=== PATIENT | male | born 1955 | race Caucasian/White ===

== ENCOUNTER 2017-12-30 05:45 | Emergency (ER) | payer MEDICARE, SELFPAY ==
[~2017-12-30] VITALS: Ht 180.3 cm; Wt 106.6 kg
[~2017-12-30 05:45] MED LIST: BACLOFEN10 MG PO; CARBIDOPA-LEVO1 EAC2 PO; CITALOPRAM HBR20 MG PO; COLACE100 MG PO; DIPHENHYDRAMINE25 M1 PO; MILK OF MA400 MG/5 M PO; MIRALAX17 GM PO; TAMSULOSIN HCL0.4 MG PO; TRAMADOL HCL50 MG PO; VIT D2 1.25 MG (50,0; ZOFRAN ODT4 MG PO
[2017-12-30] MEDS ORDERED: BANOPHEN25 MG PO (05:57)
[2017-12-30] MEDS ORDERED: SERTRALINE HCL50 MG PO (05:58)
[2017-12-30] MEDS ORDERED: ULTRAM50 MG PO (05:59)
[2017-12-30] MEDS ORDERED: OXYBUTYNIN CHLOR5 MG PO (06:01)
[2017-12-30] MEDS ORDERED: KAOPECTATE262 MG/15 PO (06:05)
[2017-12-30] MEDS ORDERED: METHYLPREDNISOLO4 M1 PO (10:07)
[2017-12-30] MEDS ORDERED: NORCO 10-325 T1 EACH PO (10:07)
[2017-12-30] MEDS ORDERED: BACTRIM DS TAB1 EACH PO (10:07)
== END 2017-12-30 11:30 | disposition home or self-care (01) ==
LOC: ED 05:45
DX: K62.89 Other specified diseases of anus and rectum (principal); N39.0 Urinary tract infection, site not specified; F32.9 Major depressive disorder, single episode, unspecified; Z87.891 Personal history of nicotine dependence; Z79.899 Other long term (current) drug therapy
CPT/HCPCS: 74177; 80053; 81001; 82150; 83690; 85025; 87045; 87046; 87088; 87177; 87209; 87493; 87502; 96361; 96374; 96375; 96376; 99284; J1170; J2060; J2270; J2405; J2930; J7030; Q9967

== ENCOUNTER → 2018-02-05 | Emergency (ER) | payer MEDICARE, SELFPAY ==
[~2018-02-05] VITALS: Ht 180.3 cm; Wt 106.6 kg
[~2018-02-05] MED LIST changes: +BACTRIM DS TAB1 EACH PO; +BANOPHEN25 M1 PO; +BANOPHEN25 MG PO; +CITRACAL SOFT1 EACH PO; +KAOPECTATE262 MG/15 PO; +METHYLPREDNISOLO4 M1 PO; +NORCO 10-325 T1 EACH PO; +OXYBUTYNIN CHLOR5 MG PO; +PHENADOZ25 MG PR; +PHENERGAN25 MG PR; +PHOS-NAK PACKE1 EACH PO; +PRILOSEC OTC20 MG PO; +SENNA8.6 MG PO; +SERTRALINE HCL50 MG PO; +TORSEMIDE20 MG PO; +ULTRAM50 MG PO; +VIRT-PHOS 250250 MG PO; +VITAMIN D50000 UNI1 PO; +XANAX XR2 MG PO
== END ==
LOC: ED 17:05
DX: N41.9 Inflammatory disease of prostate, unspecified (principal); E86.0 Dehydration; G20 Parkinson's disease; F32.9 Major depressive disorder, single episode, unspecified; Z87.891 Personal history of nicotine dependence; Z79.899 Other long term (current) drug therapy
CPT/HCPCS: 74177; 80053; 81001; 83605; 83690; 85025; 96374; 96375; 99284; J1885; J2270; J2405; J7030; Q9967

== ENCOUNTER 2018-02-09 04:12 | Emergency (ER) | payer MEDICARE, SELFPAY ==
[~2018-02-09] VITALS: Ht 180.3 cm; Wt 106.6 kg
[~2018-02-09 04:12] MED LIST changes: -BANOPHEN25 M1 PO; -CITRACAL SOFT1 EACH PO; -PHENADOZ25 MG PR; -PHENERGAN25 MG PR; -PHOS-NAK PACKE1 EACH PO; -PRILOSEC OTC20 MG PO; -SENNA8.6 MG PO; -TORSEMIDE20 MG PO; -VIRT-PHOS 250250 MG PO; -VITAMIN D50000 UNI1 PO; -XANAX XR2 MG PO
[2018-02-09] MEDS ORDERED: PHENERGAN25 MG PR (06:31)
--- NOTE | 2018-02-09 13:22 | EKG ---
[facility] [address] [facility] [place] [address] Signed Poor data quality, interpretation may be adversely affected Sinus rhythm with frequent premature ventricular complexes Nonspecific intraventricular block Marked T wave abnormality, consider anterolateral ischemia Abnormal ECG No previous ECGs available Confirmed by DENNIS RIOS MD ([id number]) on 02/09/2018 1:22:32 PM Electronically Signed By: DENNIS RIOS MD 02/09/18 1322 PATIENT NAME: LUCIO QUINN Electrocardiogram DATE OF : 57 PHYSICIAN: DENNIS RIOS MD REPORT #: [id number] REPORT IS CONFIDENTIAL AND NOT TO BE RELEASED WITHOUT AUTHORIZATION
== END 2018-02-09 08:45 | disposition home or self-care (01) ==
LOC: ED 04:12
DX: K59.09 Other constipation (principal); R11.2 Nausea with vomiting, unspecified; F32.9 Major depressive disorder, single episode, unspecified; Z87.891 Personal history of nicotine dependence; Z79.899 Other long term (current) drug therapy
CPT/HCPCS: 74022; 80053; 81001; 83605; 83690; 85025; 93005; 93010; 96374; 96375; 99284; G0480; J2550; J7030

== ENCOUNTER 2018-04-16 21:41 | Observation (INO) | payer MEDICARE, OTHER ==
[~2018-04-16] VITALS: Ht 180.3 cm; Wt 104.7 kg
[~2018-04-16 21:41] MED LIST changes: +PHENERGAN25 MG PR
[2018-04-16] MEDS ORDERED: CITRACAL SOFT1 EACH PO (22:29)
[2018-04-16] MEDS ORDERED: SENNA8.6 MG PO (22:30)
[2018-04-16] MEDS ORDERED: MIRALAX17 GM PO (22:31)
--- NOTE | 2018-04-17 00:20 | NUR ---
RECEIVED PT VIA STRETCHER FROM ER. PHONE REPORT RECEIVED FROM PAULA GOINS. NS 125ML/HR STARTED. PT IS ALERT TO PLACE BUT WAS VERY DROWSY AND DIDN'T ANSWER OTHER QUESTIONS. UNABLE TO USE PAIN SCALE. FACES SCALE IS 1/10. 2PA TO BATHRROM. PT UNSTEADY. HX PARKISONS. LEFT SIDED WEAKNESS. ORINETED TO ROOM. ASSESSMENT COMPLETED. LUNGS CLEAR AND DIM. BOWEL TONES HYPOACTIVE. PULSES +2. PT CONTINENT OF URINE AND BOWEL. REPORTS NUMBNESS AND TINGLINIG IN BLE. HEART SOUNDS NORMAL. DENTURES LEFT AT HOME. GLASSES AT BEDSIDE. BED ALARM IN PLACE A THIS TIME. CALL LIGHT IS WITHIN REACH. SLIVER LAP TENDER SOCKS ON. PT IS PLACED ON NPO STATUS AT THIS TIME.
--- NOTE | 2018-04-17 02:28 | NUR ---
ASSISTED PT SBA WITH FWW TO BSC. NO URINE OR BOWEL OUTPUT. BACK TO BED. ABLE TO REPORT PAIN HAS DECREASED. CALL LIGHT WITHIN REACH. BED ALARM IN PLACE.
--- NOTE | 2018-04-17 03:22 | NUR ---
PT REPORTED PAIN 10/10. 0.5 DILAUDID GIVEN OVER 3 MINUTES. MOVED PT TO ROOM CLOSER TO NURSES STATION D/T PT TRYING TO EXIT BED WITHOUT USING CALL LIGHT. PT DESATING TO 87% ON RA. 1L O2 NCPUT IN PLACE. O2 SATURATION BACK TO 96%. CALL LIGHT AXEL LUKE. VISIBLE FROM NURSING STATION.
--- NOTE | 2018-04-17 04:44 | NUR ---
PT REPORTED NAUSEA. 4MG ZOFRAN GIVEN. OOB SBA TO BSC. SMALL LIQ BOWEL MOVEMENT. PT DID NOT USE CALL LIGHT.
--- NOTE | 2018-04-17 05:27 | NUR ---
ASSISTED PT TO BSC. NO BM OR URINE OUTPUT. PT REPORTED FEELINGS OF NAUSEA. BAG GIVEN. BACK TO BED. 1L NC IN PLACE. CALL LIGHT RICKEY LUKE.
--- NOTE | 2018-04-17 05:50 | NUR ---
REPORTED 8/10 PAIN. 0.6 MG DILAUDID GIVEN.
--- NOTE | 2018-04-17 05:51 | NUR ---
DIDNT SLEEP WELL. NAUSEA X2. ZOFRAN 4MG GIVEN AT 0430. PAIN 8-09/01. DILAUDID PRN. LAST GIVEN AT 0545. SM LIQ BM. 1L NC IN PLACE. DESATTING WHILE SLEEPING. CONT PULSE OX IN PLACE. ICREASE HR WITH ACTIVITY. DR MIRANDA TO SEE PT TODAY AND COME UP WITH PLAC.EPT IS NPO SINCE MIDNIGHT.
--- NOTE | 2018-04-17 07:10 | NUR ---
BEDSIDE HANDOFF REPORT RECEIVED FROM COPY OPERATOR RN. PT ON BEDSIDE COMMODE, VOIDED, ASSISTED BACK TO BED. PT COMPLAINT OF PAIN REQUESTING PAIN MEDICATION. IV FLUIDS INFUSING AT 125 ML/HR. BED ALARM IN PLACE.
--- NOTE | 2018-04-17 07:46 | NUR ---
PT RATING PAIN 9/10 TO ABD, COMES AND GOES, CRAMPING, GIVEN 0.6 MG IV DILAUDID. PT ALERT/ORIENTED. PT ON 1L NC, LUNG SOUNDS CLEAR, CONTINUOUS PULSE OX 96%. PT DENIES NAUSEA, BOWEL TONES HYPOACTIVE, SEVERE ABD DISTENTION. PT WITH TREMORS IN UPPER EXTREMITIES, LEFT SIDED WEAKNESS. IV FLUIDS INFUSING AT 125 ML/HR. PULSES STRONG, TRACE EDEMA IN BLE. PT DENIES OTHER NEEDS AT THIS TIME. BED ALARM IN PLACE.
--- NOTE | 2018-04-17 09:42 | NUR ---
MD TO BEDSIDE TO EVALUATE PT. PLAN TO GIVEN FLEETS ENEMA AND GO FOR COLONOSCOPY TODAY.
--- NOTE | 2018-04-17 10:53 | NUR ---
FLEET ENEMA GIVEN PER ORDER. PT NOW SITTING ON BEDSIDE COMMODE, CALL LIGHT WITHIN REACH. ETHYLBENZENE CRACKING SUPERVISOR AWAITING TO DO EKG.
--- NOTE | 2018-04-17 12:50 | NUR ---
PT TO OR WITH DAY SURGERY RN.
--- NOTE | 2018-04-17 13:16 | NUR ---
04/17/18 1315 Larissa Sherman 1311-PATIENT ARRIVED TO PACU ON 6L MASK O2 SAT 100% LAYING LEFT LATERAL. NONAROUSABLE. ABDOMEN SOFT. SR WITH BBB
--- NOTE | 2018-04-17 14:10 | NUR ---
PT RECEIVED FROM PACU AFTER COLONOSCOPY, PT ALERT AND ORIENTED. PT ABLE TO SCOOT HIMSELF TO BED. PT ON ROOM AIR, LUNG SOUNDS CLEAR, O2 SATS 92%. PT BOWEL TONES HYPOACTIVE, DENIES NAUSEA, COMPLAINT OF ABD CRAMPING. IV FLUIDS INFUSING D5LR AT 100 ML/HR. PT ON CLEAR LIQUID DIET. PT CONTINUES TO HAVE EDEMA TO BLE, UNCHANGED FROM MORNING ASSESSMENT. PLAN OF CARE DISCUSSED WITH PT. PT DENIES OTHER NEEDS AT THIS TIME. VSS.
--- NOTE | 2018-04-17 14:56 | NUR ---
2 PERSON ASSIST WITH DAWIT MADISON, PATIENT USING URINAL WHILE STANDING AT BEDSIDE. CALL LIGHT IN REACH. NO OTHER NEEDS
--- NOTE | 2018-04-17 15:15 | NUR ---
PT RESTING IN BED. PT COMPLAINT OF PAIN AND ABD CRAMPING, GIVEN 1 MG IV DILAUDID. VSS. NO ACUTE CHANGES. GIRLFRIEND ANDREA AT BEDSIDE, UPDATED ON PLAN OF CARE. PT DENIES OTHER NEEDS AT THIS TIME.
--- NOTE | 2018-04-17 15:20 | NUR ---
PT DAUGHTER REQUESTING UPDATE AND TO DISCUSS PT CONDITION. UPDATE PROVIDED. DAUGHTER CONCERNED THAT PT DOES NOT APPEAR TO BE DOING WELL TODAY, DISCUSSED WITH DAUGHTER. UPDATED ON PHYSICAL THERAPY TODAY AND IMRPOVEMENT ON OXYGEN STATUS. DAUGHTER LEAVING FOR THE AFTERNOON. PT RESTING IN BED, CPAP IN PLACE.
--- NOTE | 2018-04-17 15:20 | NUR ---
TOOK ICE WATER AND GLASS OF APPLE JUICE.
--- NOTE | 2018-04-17 15:45 | NUR ---
PT REQUESTING PRN ALBUTEROL INHALER, PT RECENTLY DOSE AT 1611, PT ANXIOUS INCREASED WORK OF BREATHING. PT STATES "I WAS TOLD I COULD HAVE IT WHENEVER I NEED IT". MD CALLED, ONE TIME ORDER FOR ALBUTEROL INHALER. PT GIVEN TREATMENT. PT ASSISTED INTO BED. OXYMASK ON AT 3L. PT DENIES OTHER NEEDS AT THIS TIME.
--- NOTE | 2018-04-17 18:25 | NUR ---
PT WITH INCREASED ANXIETY AND SOB TODAY, ON 2-3L OXYMASK AND NASAL CANNULA, CPAP WHEN SLEEPING, RECEIVED PRN ALBUTEROL INHALERS. PT WITH POOR APPETITE, TOLERATED CLEAR ENSURE, BOWEL TONES ACTIVE. PT UP WITH SBA TO BATHROOM, VOIDING QS. WAS NOT ABLE TO WALK FAR WITH PHYSICAL THERAPY TODAY.
--- NOTE | 2018-04-17 18:35 | NUR ---
PT WENT FOR COLONOSCOPY TODAY, PLAN FOR BOWEL PREP AND REPEAT COLONOSCOPY TOMORROW. PT ON ROOM AIR, LUNG SOUNDS CLEAR. PT ALERT/ORIENTED, PARKINSONS TREMORS. PT TOLERATING CLEAR LIQUID DIET, NPO AT 0300. BOWEL PREP STARTED. D5LR AT 100 ML/HR, CEFEPIME AND FLAGYL. PT VOIDING QS.
--- NOTE | 2018-04-17 19:33 | EKG ---
[facility] [address] [facility] [place] [address] Signed Normal sinus rhythm Right bundle branch block T wave abnormality, consider lateral ischemia Abnormal ECG When compared with ECG of 09-FEB-2018 04:16, premature ventricular complexes are no longer present QRS duration has increased Confirmed by JEM FLORES MD ([id number]) on 04/17/2018 6:15:05 PM Electronically Signed By: JEM FLORES MD 04/17/18 193 PATIENT NAME: LUCIO QUINN Electrocardiogram DATE OF : 57 PHYSICIAN: JEM FLORES MD REPORT #: [id number] REPORT IS CONFIDENTIAL AND NOT TO BE RELEASED WITHOUT AUTHORIZATION
--- NOTE | 2018-04-17 20:00 | NUR ---
PATIENT ASSISTED TO BEDSIDE COMODE, SBA. NO BACK IN BED, BREATHING IS EVEN AND UNLABORED. DENIES FURTHER NEEDS. CALL LIGHT WITHIN REACH.
--- NOTE | 2018-04-17 21:15 | NUR ---
PATIENT ASSISTED BACK TO BED AFTER USING COMODE. DENIES FURTHER NEEDS. ASSESSMENT DONE, MEDICATIONS GIVEN. BREATHING IS EVEN AND UNLABORED. CALL LIGHT WITHIN REACH.
--- NOTE | 2018-04-17 21:50 | NUR ---
ASSISTED PATIENT TO USE THE BEDSIDE COMMODE AND TO BED X2.
--- NOTE | 2018-04-18 00:07 | NUR ---
CHARGE NURSE NOTE:, CONTINUES ON BOWEL PREP REGIMEN. NPO AFTER 0300 FOR AM COLONOSCOPY.
--- NOTE | 2018-04-18 00:07 | NUR ---
PATIENT ASSISTED BACK TO BED AFTER USING BEDSIDE COMODE. PATIENT REPORTS INTERMITTENT 8/10 ABD CRAMPING. PRN TRAMADOL GIVEN PER EMAR. PATIENT ALSO STATES "I FEEL LIKE I GOT THE CHILLS AFTER GETTING BACK INTO BED." TEMPERATURE OF 98.2 TAKEN, PROVIDED WARM BLANKET. CALL LIGHT WITHIN REACH, NO FURTHER NEEDS.
--- NOTE | 2018-04-18 01:18 | NUR ---
PATIENT ASSISTED BACK TO BED FROM [facility]. DENIES NEEDS. CALL LIGHT WITHIN REACH.
--- NOTE | 2018-04-18 02:15 | NUR ---
PATIENT STATES "I AM GOING CRAZY RIGHT NOW. I DON'T KNOW WHAT IT IS, BUT I JUST FEEL LIKE IM GOING TO LOOSE IT." PATIENT DENIES FEELING ANXIOUS, DENIES PAIN. ASSISTED PATIENT TO AMBULATE IN HALLS WITH SBA/FWW. NOW RESTING IN CHAIR WITH FEET ELEVATED AND WARM BLANKET. PATIENT STATES "I FEEL A LITTLE BETTER. I JUST DON'T KNOW WHAT IS GOING ON." EDUCATED PATIENT ABOUT PLAN OF CARE, PATIENT STATES THAT HE ALREADY UNDERSTANDS AND STATES "I DON'T KNOW HOW LONG I AM GOING TO BE HERE." EDUCATED PATIENT THAT UPCOMING TEST WILL DETERMINE THE NEXT STEP FOR TREATMENT, PATIENT STATES UNDERSTANDING. DENIES FURTHER NEEDS. CALL LIGHT WITHIN REACH.
--- NOTE | 2018-04-18 03:42 | NUR ---
UPDATED DR. FLORES REGARDING PATIENT STATING THAT HIS LEVODOPA/CARBIDOPA IS TAKEN Q4H AT HOME AND PATIENT'S WORSENING TREMORS AND INCREASE IN ANXIETY. ORDER FOR LEVODOPA/CARBIDOPA CHANGED TO Q4H WITH DOSE GIVEN NOW. PATIENT STATES THAT HE IS HAPPY THAT ORDER WAS CHANGED AND STATES "THIS WILL MAKE ME FEEL BETTER." DENIES FURTHER NEEDS AT THIS TIME. CALL LIGHT WITHIN REACH.
--- NOTE | 2018-04-18 06:27 | NUR ---
GAVE SHOWER TO PATIENT.
--- NOTE | 2018-04-18 06:32 | NUR ---
PATIENT INCONTINENT OF STOOL, PATIENT GIVEN SHOWER BY FLATWORK PRESSER. NOW RESTING IN CHAIR, BREATHING IS EVEN AND UNLABORED. DENIES NEEDS AT THIS TIME. CALL LIGHT WITHIN REACH.
--- NOTE | 2018-04-18 07:45 | NUR ---
PATIENT CALLED FOR ASSITANCE TO BEDSIDE COMMODE. CALL LIGHT IN REACH.
--- NOTE | 2018-04-18 08:05 | NUR ---
PT AWAKE SITTING UP IN RECLINER ALERT AND ORIENTED. MILD TREMORS OF HANDS AND FEET NOTED D/T PARKINSONS, INCREASES WITH MOVEMENT. SATTING 95% ON RA. REPORTS SOME GAS/BLOATING BUT DENIES PAIN OR OTHER CONCERNS. IV INFUSING WNL. SBA TO COMMODE. CALL LIGHT WITHIN REACH.
--- NOTE | 2018-04-18 09:35 | NUR ---
PATIENT UP IN CHAIR, PATIENT CONCERNED WITH THE AMOUNT OF TIME HE'S "BEEN POKED" STATES HE "FEELS PRETTY SHITTY" TRANSPORT SPECIALIST NATALYA IN TO START NEW IV.. THIS STORE SALES CONSULTANT AND STORE SALES CONSULTANTPeg HUIZAR CHARTED VITALS AND I/OS. CALL LIGHT IN REACH
--- NOTE | 2018-04-18 10:03 | OR ---
[facility] [address] [place], [place] [address] Signed DATE OF OPERATION: 04/17/2018 SURGEON: South Miranda MD PREOPERATIVE DIAGNOSES: 1. Large bowel obstruction at GE junction. 2. Recent history of proctitis. 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 PROCEDURE: Colonoscopy (100 cm) with reduction of sigmoid volvulus and cold rectal biopsies. ESTIMATED BLOOD LOSS: None. FINDINGS: Hugo had nearly 100% of his rectal colonic mucosa covered with dark liquid particulate stool matter. Nevertheless, it looks like he had a volvulus at the top of the rectum. The scope passed to readily up to about 100 cm where we encountered too much liquid stool to advance any further. We went ahead and brought the camera back slowly and then we suctioned out gas as we came back with a tremendous improvement in his abdominal exam. We did not see an obvious mass at the GE junction, but again there has been a significant amount of liquid particulate stool matter covering the mucosa. We did see some of the rectum and it appeared just to be fine. We went ahead and took 2 biopsies out of the rectum because of recent history of proctitis. INDICATIONS: Hugo is a 63-year-old gentleman with significant Parkinson disease. He does well with his medication and actually is able to keep to drive. He has had a lot of trouble in the last few years and certainly last few months with constipation and a long dilated redundant colon. In fact, I reviewed x-rays clear back to 2014 revealing with his colon. He has actually had 3 CAT scans in the last few months showing the moderate amount of stool in the colon. No obvious obstruction, but there was some concern about proctitis, so he had been on antibiotics. On this occasion, there was a question whether or not he had an obstruction right at the GE junction. When I reviewed that CT scan myself, I thought there was a bit of swirling and a bit of a bird beak there consistent with a volvulus. In the last 2 or 3 days, Hugo has had quite a bit of abdominal distention with nausea and vomiting and very little stool output. When he Electronically Signed By: SOUTH MIRANDA MD 04/18/18 1003 PATIENT NAME: HUGO QUINN OPERATIVE REPORT DATE OF : 57 REPORT #: [id number] PHYSICIAN: SOUTH MIRANDA MD PCP: WILMAN SO DO REPORT IS CONFIDENTIAL AND NOT TO BE RELEASED WITHOUT AUTHORIZATION [facility] [address] [place], [place] [address] Signed came to emergency room, his vital signs were fine, but his abdomen was quite distended. He had diffuse tympany and was diffusely mildly tender throughout. His white count was at 12.3 with neutrophils 82. Potassium was a little low at 3.1, but thank Goodness. His BUN and creatinine were fine at 17 and 0.7. There was no lactic acid done the night found. I have been asked to admit him as a general surgeon on-call. He was admitted, given IV fluids and pain control. I had met with Hugo in the hospital and I explained to him the above findings. He also asked that I called his friend, Farida, at [phone] to bring her up to date as well. I explained to Hugo that he would need a colonoscopy under sedation to evaluate the area of the GE junction to hopefully reduce his volvulus and that at some point he may very well need surgery, and if indeed he has a volvulus, there is a 40% chance it will recur. Consequently, most of these patients undergo a sigmoid resection to straighten the colon and reduce the chance of volvulus in the future. I did review. He told me he has never had a previous colonoscopy. We reviewed the colonoscopy together in detail. He understands there is risk including, but not limited to gas bloating, crampy abdominal pain, bleeding, perforation, requiring surgery, and missed diagnosis. He had expressed understanding and wished to proceed. PROCEDURE NOTE: Hugo was taken down to our endoscopy suite after he was given two fleets enema on the floor. In our endoscopy suite, he did sit at the bedside commode and he did pass some liquid stool. After this, he was placed in a left lateral decubitus position and given IV sedation per our nurse house mover. A digital rectal exam was performed and this was unremarkable. The adult colonoscope was introduced carefully into the rectum. Again, I could see part of the rectal wall. To us, it looked fine. As I got towards the top of the rectum, again it appeared a little rotated, but there was quite a bit of stool. I passed the scope with gentle pressure through this area and it was very short, and I came into a wide open quite dilated sigmoid colon left colon all consistent with volvulus. I advanced the scope up to about 100 cm where I encountered too much liquid stool to advance the scope any further. The scope was then slowly withdrawn and I was able to suction out the gas as we went. Once back down in the rectum, we took a couple of cold biopsies because of his recent history of proctitis. There was far too much stool in the rectum to retroflex the scope and to be of any worth. Consequently, I slowly withdrew the camera from the rectum as we suctioned out the gas and no other additional pathology was noted. On repeat abdominal exam at the termination of case, he was markedly improved. His abdomen is quite soft now. The tympany is gone, and I am sure he will feel much better. RECOMMENDATIONS: Hugo is going to be returned to his room. We will let him have liquid diet today. We are going to replace his potassium. We will do our best to clean him out with our bowel prep today, and he may need a repeat colonoscopy tomorrow if he is clean enough, and at some point, he is going to need to strongly consider having surgery for sigmoid Electronically Signed By: SOUTH MIRANDA MD 04/18/18 1003 PATIENT NAME: HUGO QUINN OPERATIVE REPORT DATE OF : 57 REPORT #: [id number] PHYSICIAN: SOUTH MIRANDA MD PCP: WILMAN SO DO REPORT IS CONFIDENTIAL AND NOT TO BE RELEASED WITHOUT AUTHORIZATION [address] [address] Signed resection. South Miranda MD ALB/MODL /[id number] cc: MD Wilman Hough DO Copies: SOUTH MIRANDA MD, KENT DO ~ Electronically Signed By: SOUTH MIRANDA MD 04/18/18 1003 PATIENT NAME: HUGO QUINN OPERATIVE REPORT DATE OF : 57 REPORT #: [id number] PHYSICIAN: SOUTH MIRANDA MD PCP: WILMAN SO DO REPORT IS CONFIDENTIAL AND NOT TO BE RELEASED WITHOUT AUTHORIZATION
--- NOTE | 2018-04-18 10:03 | CONS ---
[facility] [address] [place], [place] [address] Signed DATE OF CONSULTATION: 04/17/2018 CHIEF COMPLAINT: Generalized abdominal pain. HISTORY OF PRESENT ILLNESS: Hugo is a 63-year-old gentleman, who has a long history of Parkinson disease and constipation. He is on a number of different medications for his constipation. However, acutely he has developed increased abdominal distention with nausea and vomiting. He has not had a bowel movement a few days. He came to the emergency room for evaluation where he shows diffuse generalized abdominal tenderness and tympany. White count is slightly elevated at 12.3. CT scan shows an obstruction around the GE junction. It is most likely. There appears to be some swelling, possibly a sigmoid volvulus. Consequently, I was asked to admit the patient as a general surgeon on-call. PAST MEDICAL HISTORY: Hiatal hernia, Parkinson's, chronic pain, depression, and constipation. PAST SURGICAL HISTORY: Back surgery without metal. SOCIAL HISTORY: He does not smoke or drink. His primary care provider is Dr. Wilman So. He prefers the [facility]. Farida Zhao is his friend at [phone]. They live in a house together. He continues to drive. He has 2 children, but one has . FAMILY HISTORY: Mom has what sounds like an abdominal aortic aneurysm. Brother had a brain aneurysm. Uncle had some type of aneurysm. He is not sure about his dad. REVIEW OF SYSTEMS: He had 10 systems reviewed and he seems to be doing well otherwise. ALLERGIES: None. MEDICATIONS: Phenergan, vitamin D, carbidopa/levodopa, Flomax, citalopram, milk of magnesia, docusate, Benadryl, sertraline, tramadol, oxybutynin, bismuth, calcium, senna, and polyethylene glycol. PHYSICAL EXAMINATION: VITAL SIGNS: His blood pressure is 111/73, heart rate 91, respiratory rate 18, Electronically Signed By: SOUTH MIRANDA MD 04/18/18 1003 PATIENT NAME: HUGO QUINN CONSULTATION DATE OF : 57 REPORT #: [id number] PHYSICIAN: SOUTH MIRANDA MD PCP: WILMAN SO DO REPORT IS CONFIDENTIAL AND NOT TO BE RELEASED WITHOUT AUTHORIZATION [facility] [address] [place], [place] [address] Signed temperature is 99.1. He is 94% on room air. He is 5 feet 11 inches and 104 kg. GENERAL: Dat is a 63-year-old gentleman lying supine in his hospital bed. He clearly has some tremors as he has been off the carbidopa levodopa. He said it is a little more than usual. His lungs are clear to auscultation bilaterally heart is rate and rhythm abdomen show significant protuberance with diffuse tympany and mild diffuse tenderness. LABORATORY DATA: His white blood count is 12.3, hemoglobin is 12, neutrophils 82. Potassium 3.1, BUN 17, creatinine 0.7. Urinalysis shows a little red blood cells. Liver function test is negative. Amylase 15. RADIOGRAPHIC STUDIES: I went back to 2014, where he had abdominal x-ray showing a large redundant colon with stool in the colon. A CT scan in December of this year showed a dilated thickened stool-filled rectum up to the GE junction concerning for proctitis. He said he was on antibiotics for that and then a CT scan in mid January of 2018 showed moderate stool again, but no obvious obstruction. Abdominal x-rays from the 02/09/2018 also showed the dilated small and large bowel with gas and stool all the way into the rectum, and then a CT scan last night that shows the possible obstruction at the GE junction with a little bit of swelling and little bit of edema. Once again, the rectum seems a little irregular. ASSESSMENT AND PLAN: Hugo is a 63-year-old gentleman who presents with an acute on chronic issue involving his large bowel and rectum. He may have a volvulus or it could be something else, but I doubt that it is a tumor knowing that he has had multiple x-rays at this point. However, he said he has never had a colonoscopy. We are going to bring our crew in here shortly, and we are going to give him a couple enemas and will insert the colonoscope and see if we can look at the top of the rectum. If he has a volvulus, hopefully we can reduce that; if not, he may need surgery. I have reviewed all this with him in detail, and he had me call his girlfriend Farida. I know Farida accepting care as well. They have expressed understanding and wished to proceed. MD MARTA Hough/NATALIIAL /[id number] Electronically Signed By: SOUTH MIRANDA MD 04/18/18 1003 PATIENT NAME: HUGO QUINN CONSULTATION DATE OF : 57 REPORT #: [id number] PHYSICIAN: SOUTH MIRANDA MD PCP: WILMAN SO DO REPORT IS CONFIDENTIAL AND NOT TO BE RELEASED WITHOUT AUTHORIZATION [facility] [address] [place] [address] Signed cc: MD Wilman Hough DO Copies: SOUTH MIRANDA MD, KENT DO ~ Electronically Signed By: SOUTH MIRANDA MD 04/18/18 1003 PATIENT NAME: HUGO QUINN CONSULTATION DATE OF : 57 REPORT #: [id number] PHYSICIAN: SOUTH MIRANDA MD PCP: WILMAN SO DO REPORT IS CONFIDENTIAL AND NOT TO BE RELEASED WITHOUT AUTHORIZATION
--- NOTE | 2018-04-18 11:00 | NUR ---
NEW IV STARTED IN LEFT FOREARM BY NATALYA VINYL WELDER AND FABRICATOR. RIGHT ARM IV REMAINS PATENT. BOTH IV'S BEING USED TO INFUSE FLUIDS, RIDERS, AND ANTIBIOTICS.
--- NOTE | 2018-04-18 12:39 | NUR ---
PT BACK TO THE CHAIR AFTER HAVING LIQUID STOOL AT THE BEDSIDE COMMODE. CALL LIGHT WITHIN REACH.
--- NOTE | 2018-04-18 12:45 | NUR ---
PT TRANSFERRED TO OR FOR COLONOSCOPY.
--- NOTE | 2018-04-18 13:45 | NUR ---
04/18/18 1345 Larissa Sherman 1340-PATIENT ARRIVED TO PACU ON 6L MASK O2 SAT 100% SR LAYING LEFT LATERAL. PASSING FLATUS. ABDOMEN ROUND AND SOFT. PATIENT NONAROUSABLE. RR EVEN.
--- NOTE | 2018-04-18 14:15 | NUR ---
PT ARRIVED FROM SURGERY, TRANSFERRED TO HOSPITAL WITH FULL ASSIST. PT VERY DROWSY BUT ORIENTED TO ALL. PT SATTING 89% ON RA, PLACED ON 2LNC SATTING 94%. BOTH IV'S INFUSING WNL. TAKING SIPS OF WATER, NIDHI WELL. CALL LIGHT WITHIN REACH.
--- NOTE | 2018-04-18 15:20 | NUR ---
PT DROWSY. NIDHI CLEARS. DENIES NEEDS OR CONCERNS, SATTING 95% ON 2LNC. CALL LIGHT WITHIN REACH.
--- NOTE | 2018-04-18 16:46 | NUR ---
GIRL FRIEND ANDREA CALLED FOR UPDATE, PROVIDED. STATES SHE MIGHT BE UP LATER TO VISIT.
--- NOTE | 2018-04-18 17:40 | NUR ---
PATIENT IN BED, DINNER ON TABLE IN FRONT. FAMILY IN ROOM. THIS DIRECTOR OF CLINICAL EDUCATION AND DIRECTOR OF CLINICAL EDUCATION GAYE IN FOR VITALS AND I/OS, ALSO REPOSITIONED PATIENT IN BED. CALL LIGHT IN REACH
--- NOTE | 2018-04-18 18:05 | NUR ---
PT SITTING UP IN BED DRINKING CLEARS. GIRLFRIEND AT BEDSIDE. PT DENIES NEEDS OR CONCERNS AT THIS TIME. WILL START BOWEL PREP LIZZETTE.
--- NOTE | 2018-04-18 19:10 | NUR ---
BEDSIDE REPORT RECEIVED FROM OFFGOING RN. PT WITH FAMILY AT BEDSIDE. DENIES NEEDS AT THIS TIME. CALL LIGHT WITHIN REACH.
--- NOTE | 2018-04-18 19:57 | NUR ---
ASSISTED PATIENT TO USE THE BEDSIDE COMMODE AND BACK TO BED USING WITH WALKER. CALL LIGHT WITHIN REACH. NO OTHER NEEDS AT THIS TIME. IS IN THE ROOM.
--- NOTE | 2018-04-18 21:07 | NUR ---
PT ASSESSMENT COMPLETE. PT DEIES PAIN. REPORTS THAT HE IS HAVING A HARD TIME TAKING A DEEP BREATH, SAO2 @ 94% ON CONTINOUS PULSE OX. ABD FIRM, NON TENDER. BT'S ACTIVE. BOWEL PREP INITIATED. PT DENIES NEEDS AT THIS TIME. CALL LIGHT WITHIN PT REACH.
--- NOTE | 2018-04-18 23:30 | NUR ---
ASSISTED PATIENT TO BEDSIDE COMMODE AND BACK TO BED USING WALKER. CALL LIGHT WITHIN REACH.
--- NOTE | 2018-04-19 01:09 | NUR ---
PT SITTING IN BED. STATES THAT HE WAS "WRESTLING WITH HIS BLANKETS." PT ASSISTED UP TO BSC WITH 1 PA AND FWW. PT STATES THAT HIS STOMACH MUSCLES ARE SORE, DENIES CRAMPING OR OTHER ABD PAIN. PT ASSISTED BACK TO BED. DENIES OTHER NEEDS AT THIS TIME. PT CONTINUES TO DRINK BOWEL PREP. CALL LIGHT WITHIN REACH.
--- NOTE | 2018-04-19 01:47 | NUR ---
PT LYING IN BED WATCHING TV. PT STATES THAT HE TYPICALLY HAS A DIFFICULT TIME SLEEPING. PT ASSESSMENT COMPLETE. PT DENIES PAIN, NAUSEA, SOB. ABD REMAINS MILDLY DISTENDED AND FIRM. BT'S ACTIVE. PT CONTINUES TO HAVE LIQ BROWN STOOL. PT STILL DRINKING BOWEL PREP WITH ENCOURAGEMENT. PT DENIES NEEDS AT THIS TIME. CALL LIGHT WITHIN REACH.
--- NOTE | 2018-04-19 03:00 | NUR ---
PT MADE NPO AT THIS TIME. PT ABLE TO DRINK APPROXIMATELY 1 AND 1/4 BOTTLES OF BOWEL PREP.
--- NOTE | 2018-04-19 04:32 | NUR ---
PT UP TO BSC, HAVING LIGHT BROWN TO CLEAR LIQUID STOOLS. 1 PILL NOTED TO BE PRESENT IN STOOL. PT ASSISTED BACK TO BED WITH 1PA. DENIES OTHER NEEDS AT THIS TIME. CALL LIGHT WITHIN REACH.
--- NOTE | 2018-04-19 05:35 | NUR ---
PT UP MOST OF NIGHT, USING BSC. BOWEL PREP LAST EVENING, PT NPO @ 0300. TREMORS PRESENT DUE TO PARKINSONS. 1 PA WITH FWW. LR+20K @ 100. FLAGYL. BT'S ACTIVE. ABD MILDLY DISTENDED, PT REPORTS "ABDOMINAL MUSCLES SORE".
--- NOTE | 2018-04-19 08:08 | NUR ---
BEDSIDE REPORT RECEIVED FROM JEWEL GOINS. PATIENT AWAKE LYING IN BED. WHITE BOARD UPDATED. IVF INFUSING AT LR+KCL @ 100. TAPE REMOVED FROM PREVIOUS IV ON LEFT HAND. RESPIRATORY THERAPIST IN. FLAGYL INFUSING NOW. TOOK SCHEDULED MEDICATIONS ORDERED. WORKING WITH I/S NOW. POSSIBLE SIGMOID COLECTOMY PLANNED FOR TODAY. AWAITING TO HEAR FROM .
--- NOTE | 2018-04-19 09:45 | NUR ---
PLAN TO DISCHARGE PATIENT. TO BE SEEN BY DR MIRANDA IN OFFICE EARLY NEXT WEEK.
[2018-04-19] MEDS ORDERED: PRILOSEC OTC20 MG PO (10:09)
[2018-04-19] MEDS ORDERED: PHOS-NAK PACKE1 EACH PO (10:12)
--- NOTE | 2018-04-20 08:22 | NUR ---
CALLED TO SCHEDULE FOLLOW UP APPOINTMENTS FOR PATIENT. RUTH IS ON ThursdayApril AT 3:55, AND DR SO ON ThursdayApril AT 10:00 A.M. I CALLED THE PATIENT TO LET HIM KNOW.
--- NOTE | 2018-04-27 08:00 | OR ---
[facility] [address], [place] [address] Signed DATE OF OPERATION: 04/18/2018 SURGEON: South Miranda MD PREOPERATIVE DIAGNOSES: 1. Anemia. 2. Recent sigmoid volvulus. POSTOPERATIVE DIAGNOSES: 1. Moderate diffuse gastroduodenitis. 2. Shallow pyloric bulb ulcers x2. 3. Proximal stercoral rectal ulcer. 4. Long redundant dilated colon. PROCEDURE: 1. EGD with CLOtest and biopsies of the pyloric bulb, antrum and body of stomach. 2. Colonoscopy without biopsy to proximal right colon. ESTIMATED BLOOD LOSS: None. INDICATIONS: Hugo is a 63-year-old gentleman with significant Parkinson's disease. He lives with his friend Farida. He does continue to drive. He has had tremendous trouble with constipation for several years, but the last few months has been quite terrible. He has had multiple x-rays and CT scans actually last few months. He came back in the hospital with abdominal distention, nausea and vomiting and no bowel movement for several days. White count at that time was 12.3 with neutrophils 82. His potassium was low, but his BUN and creatinine were good at 17 and 0.7. I had been asked to admit him as a general surgeon on-call. He was hydrated and I did start him on some antibiotics and we had the Internal Medicine Service see him as well. To my read on the most recent CT scan that looked to me like he had a volvulus, little bit of tapering and a little bit of a bird's beak at the top of the rectum. I reviewed x-rays clear back to 2014 and I never could find any evidence of tumor in that area. He always had a long redundant dilated colon with lots of stool. He has been on laxatives including polyethylene glycol. I met with Hugo here in the hospital. I also talked to his friend Farida over the telephone at his request. I explained our current findings and we took him urgently to the endoscopy suite yesterday after a couple of fleets enemas. We were able to see what we thought was the sigmoid volvulus, although there was quite a bit of stool and we reduced that and went up about 100 cm and removed a tremendous amount of air from his abdomen and his Electronically Signed By: SOUTH MIRANDA MD 04/27/18 0800 PATIENT NAME: HUGO QUINN OPERATIVE REPORT DATE OF : 57 REPORT #: [id number] PHYSICIAN: SOUTH MIRANDA MD PCP: WILMAN SO DO REPORT IS CONFIDENTIAL AND NOT TO BE RELEASED WITHOUT AUTHORIZATION [facility] [address], [place] [address] Signed abdominal exam was markedly improved and he felt much better. We had him undergo a clear liquid diet yesterday along with a bowel prep. We put him on antibiotics. He said he could not believe how much stool come out of his body since he has not eaten much he says. In addition, he is now anemic with IV hydration. I explained to Hugo I really needed to check his full colon for any synchronous lesions before any surgery and because he was anemic, we should check his stomach as well for any gastritis or ulcers and so forth. I reviewed endoscopy with him in detail. He understands there is risk including, but not limited to gas bloating, crampy abdominal pain, bleeding, perforation, requiring surgery, and missed diagnosis. He also understands the need for IV conscious sedation as before. With his level of illness, we had an anesthesia provider help us with increased monitoring and sedation with propofol with the help of geo Arcos. He had expressed understanding and wished to proceed. PROCEDURE NOTE: Hugo was taken into our endoscopy suite and placed in the supine semi-recumbent position. The posterior oropharynx was anesthetized with Hurricaine spray. A bite block was utilized for the case. The adult gastroscope was introduced and advanced under direct visualization of camera out into the second portion of the duodenum. The duodenum proper was fine. The pyloric bulb showed some irritation and two shallow ulcerations and back in the stomach he had quite a bit inflammatory changes in the antrum and then throughout the stomach all the way up into the fundus. We took biopsies of the antrum for CLOtest as well as pathologic review. No obvious ulcerations in the stomach itself. Upon retroflexion of the scope, he does not have the best flap valve mechanism, although obvious hiatal hernia was not seen. There is no gastric or esophageal varices. We did take a biopsy of the body of the stomach for pathologic review. He has minimal disruption to the Z-line. There was no Vines's mucosa, no distal esophagitis. The middle and upper esophagus were unremarkable. After this, the gas was suctioned out and the gastroscope removed. Dat tolerated his upper endoscopy quite well. Dat was then rotated into the left lateral decubitus position. He was maintained on IV sedation with Versed and propofol per our nurse herbicide sprayer. A digital rectal exam was repeated and this was unremarkable. The adult colonoscope was introduced and he has what looks like a stercoral ulcer near the top of his rectum. He certainly has some edema at the top of the rectum around the rectosigmoid junction. His prep was markedly improved. I was able to pass the scope through this area and up through the left colon quite readily. He had a few areas of liquid particulate stool matter, some of which containing pills. Those we irrigated and sucked out the best we could. It was impressive to see how much colon or how dilated his colon really is. We made it all the way around into the right colon itself. It looked like we were viewing the cecum full of liquid particulate stool matter, but we never could reach it even though we turned him in the supine position and used abdominal compression and so forth. The scope was Electronically Signed By: SOUTH MIRANDA MD 04/27/18 0800 PATIENT NAME: HUGO QUINN OPERATIVE REPORT DATE OF : 57 REPORT #: [id number] PHYSICIAN: SOUTH MIRANDA MD PCP: WILMAN SO DO REPORT IS CONFIDENTIAL AND NOT TO BE RELEASED WITHOUT AUTHORIZATION [facility] [address] [place] [id number] Signed then slowly withdrawn. We found no evidence of any other pathology in his entire colon. There was no diverticulosis, no polyps and no tumors that we could find. Again the GE junction is edematous, but no tumor. We tried several times and retroflexed the scope and we could just barely see down around the anus and we did not see any additional pathology there. After this, the gas was suctioned out and the colonoscope removed. Hugo tolerated his procedure quite well. RECOMMENDATIONS: Hugo is going to be returned to his room today back on clear liquid diet. After talking with Hugo, his friend Farida and his sister, we will more than likely do a sigmoid resection tomorrow morning. South Miranda MD ALB/MODL /[id number] cc: Wilman So DO Copies: WILMAN SO DO ~ Electronically Signed By: SOUTH MIRANDA MD 04/27/18 0800 PATIENT NAME: HUGO QUINN OPERATIVE REPORT DATE OF : 57 REPORT #: [id number] PHYSICIAN: SOUTH MIRANDA MD PCP: WILMAN SO DO REPORT IS CONFIDENTIAL AND NOT TO BE RELEASED WITHOUT AUTHORIZATION
--- NOTE | 2018-04-27 08:00 | DS ---
[facility] [address], [place] [address] Signed ADMISSION DATE: 04/17/2018 DISCHARGE DATE: 04/19/2018 FINAL DIAGNOSES: 1. Sigmoid volvulus. 2. Anemia. 3. Hypophosphatemia. PROCEDURES: 1. Colonoscopy x2. 2. Upper endoscopy. 3. CT scan of abdomen and pelvis. HISTORY OF PRESENT ILLNESS: Hugo is a 63-year-old gentleman with significant Parkinson disease who happens to live with his friend. He has had trouble for years with constipation, but in particular the last few months. He has had multiple x-rays including CT scans done the last few months. He came into the emergency room with at least several days of constipation, nausea, and vomiting. The white count was a little up at 12.3 with neutrophils 82. The potassium a little low at 3.1. CT scan showed what looked like an obstruction around the GE junction. To my viewing, it looked like a bit of a bird's beak with a little swirling and therefore concern for possible volvulus. HOSPITAL COURSE: I took Hugo to the endoscopy suite after a couple of enemas on the day of admission and he still had a significant amount of stool, but we saw no tumors. We passed through the GE junction. We think he had just a short volvulus there. It opened up nicely and I was able to pass the camera up to 100 cm where there was mostly air and lots of liquid particulate stool in the mucosa. I could not pass the scope any further because there was too much stool, so I slowly withdrew the scope along with the air. He was markedly improved after the procedure. We had him returned to his room and we put him through our bowel prep and brought him back to the endoscopy suite the following day for a repeat colonoscopy. In addition, he was found to be anemic, so we added on the upper endoscopy. We found that indeed he does have moderate diffuse gastroduodenitis, for which he will need a proton pump inhibitor. He had two shallow ulcers in the pyloric bulb and just a stercoral in the proximal rectum. He also has a very long redundant dilated colon. No evidence of any tumors or polyps or diverticulosis that we could find. Afterwards, he was returned to his room. During his hospital stay, his potassium and phosphorus have been running low. We have been giving him replacement every day. We got his potassium back to the normal range, but his phosphorus is still running low at 2.0. He does look and felt much better. We had a long discussion about his Electronically Signed By: SOUTH MIRANDA MD 04/27/18 0800 PATIENT NAME: HUGO QUINN DISCHARGE SUMMARY DATE OF : 57 REPORT #: [id number] PHYSICIAN: SOUTH MIRANDA MD PCP: WILMAN SO DO REPORT IS CONFIDENTIAL AND NOT TO BE RELEASED WITHOUT AUTHORIZATION [facility] [address] [place], [place] [address] Signed volvulus. There is a 40% chance that it will recur at any time. Nevertheless, he has been asked to go home each day. We have come through [facility] weekend and has been emergency surgeries going and we have not been able to work Hugo into that schedule. At this point, we are going to let him go home with phosphorus tablets along with some Prilosec for stomach and will see if we can get him in a little better shape and we will have him back in the office in a week or so. After that we will see if we can get him into the OR for an elective sigmoid resection. DISCHARGE PLANS AND MEDICATIONS: Hugo is going to be discharged home with a prescription for Neutra-Phos one packet p.o. q.i.d. for a month. We will give him Prilosec 1 tablet p.o. b.i.d. for 2 months and then once a day. He can resume all his other chronic medications. He can resume his regular diet. He is welcome to perform his activities of daily living as tolerated and we will see him back in the office in about a week. He has expressed understanding and agrees above plan. South Miranda MD ALB/MODL /[id number] cc: MD Wilman Hough DO Copies: SOUTH MIRANDA MD, KENT DO ~ Electronically Signed By: SOUTH MIRANDA MD 04/27/18 0800 PATIENT NAME: HUGO QUINN DISCHARGE SUMMARY DATE OF : 57 REPORT #: [id number] PHYSICIAN: SOUTH MIRANDA MD PCP: WILMAN SO DO REPORT IS CONFIDENTIAL AND NOT TO BE RELEASED WITHOUT AUTHORIZATION
== END 2018-04-19 11:42 | disposition home or self-care (01) ==
LOC: ED 21:41 → MS 21:42 → ED 04-17 00:09 → MS 04-17 00:09
PROVIDERS: ADMIT Colon & Rectal Surgery
PROC: 0DJD8ZZ Inspection of Lower Intestinal Tract, Via Natural or Artificial Opening Endoscopic (ICD-10-PCS; 2018-04-18)
PROC: 0DB68ZX Excision of Stomach, Via Natural or Artificial Opening Endoscopic, Diagnostic (ICD-10-PCS; 2018-04-18)
PROC: 0DB78ZX Excision of Stomach, Pylorus, Via Natural or Artificial Opening Endoscopic, Diagnostic (ICD-10-PCS; 2018-04-18)
PROC: 0DSN8ZZ Reposition Sigmoid Colon, Via Natural or Artificial Opening Endoscopic (ICD-10-PCS; principal; 2018-04-18 12:40)
PROC: 0DBP8ZX Excision of Rectum, Via Natural or Artificial Opening Endoscopic, Diagnostic (ICD-10-PCS; 2018-04-18 12:40)
DX: K56.2 Volvulus (principal); Q43.8 Other specified congenital malformations of intestine; D64.9 Anemia, unspecified; E83.39 Other disorders of phosphorus metabolism; E87.6 Hypokalemia; K44.9 Diaphragmatic hernia without obstruction or gangrene; G20 Parkinson's disease; K62.6 Ulcer of anus and rectum; G89.29 Other chronic pain; F32.9 Major depressive disorder, single episode, unspecified; K59.00 Constipation, unspecified; K25.9 Gastric ulcer, unspecified as acute or chronic, without hemorrhage or perforation; K29.90 Gastroduodenitis, unspecified, without bleeding; Z79.891 Long term (current) use of opiate analgesic; Z79.899 Other long term (current) drug therapy; Z87.891 Personal history of nicotine dependence; Z87.19 Personal history of other diseases of the digestive system
CPT/HCPCS: 36415; 51701; 74177; 80048; 80053; 81001; 82150; 83605; 83690; 83735; 84100; 84132; 85025; 86677; 88305; 93005; 93010; 94762; 96361; 96372; 96374; 96375; 96376; 99285; G0378; J0692; J0696; J1170; J1644; J2060; J2250; J2405; J2550; J2704; J3010; J3480; J7030; J7060; J7120; Q9967

== ENCOUNTER 2018-05-05 12:14 | Inpatient (IN) | payer MEDICARE ==
[~2018-05-05] VITALS: Ht 180.3 cm; Wt 100.7 kg
--- NOTE | ~2018-05-05 | DS ---
[facility] [address] [place] [address], [place] [address] Draft ADMISSION DATE: 05/12/2018 DISCHARGE DATE: 05/16/2018 FINAL DIAGNOSES: 1. Clostridium difficile colitis. 2. Hypophosphatemia. 3. Hypokalemia. 4. Hypomagnesemia. PROCEDURES: Limited colonoscopy. HISTORY OF PRESENT ILLNESS: Hugo is a 63-year-old gentleman we had in the hospital here a couple of weeks ago, for a sigmoid volvulus. He was having trouble with particularly low phosphorus levels, but also low potassium and magnesium levels. His pre-albumin was running around 8. We had him in the hospital for 3 days and he was up, who is getting better, but he wanted to go home for short time and I was headed out of town at the same time. It is with his friend, Farida and she takes good care of him at home. Unfortunately, Hugo does not have the best insight when it comes to his nutritional choices and does not eat the best food. He had come back to the office and was generally doing fine and so we had planned to bring him into the hospital for a standard low anterior resection for his history of volvulus. He is well aware that he has a 40% chance that the bowel re-twist. He said he was afraid to eat much, so he was eating ice-cream and ch pies hoping that his bowel would not re-twist. In the meantime, he came in for the surgery and we had drawn labs that morning. HOSPITAL COURSE: I met Hugo in our preop area and his labs were off. Once again, he had had an elevated white count prior to admission and then he was having diarrhea and we thought he might have his volvulus. 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 We took him in and sure enough he had white dots all through the rectum and up into the sigmoid colon on left colon all consistent with C. diff colitis. He had quite a bit of liquid stool around the rectosigmoid junction and once again, it was hard to tell if he had a full volvulus or not. Nevertheless, he was admitted. We started him on his Flagyl. In each day, we had to correct his electrolytes. He is now into the day and thank Goodness the phosphorus and potassium were fine. The magnesium was just a bit low, so we are going to replace that today. He is up to a soft low residue diet and PATIENT NAME: HUGO QUINN DISCHARGE SUMMARY DATE OF : 57 REPORT #: [id number] PHYSICIAN: SOUTH MIRANDA MD PCP: YASHIRA SO DO REPORT IS CONFIDENTIAL AND NOT TO BE RELEASED WITHOUT AUTHORIZATION [facility] [address] [place], [place] [address] Draft he is doing well. His diarrhea is now resolved and he had just a couple of small semi soft bowel movements yesterday. He also passed 5 L of urine and he is now in a negative fluid balance today over the last 24 hours. He looks and feels much better and as always he wants to go home. He has a generalized anxiety disorder and he told me today that he feels much more comfortable obviously being at home. DISCHARGE PLANS AND MEDICATIONS: I had a long talk with Hugo regarding Clostridium difficile colitis. He understands that it is a bacterial colitis and is infectious, although I think he will be fine now to go home and his roommate should be fine, although not to share bed or any kind of clothing, washcloth so forth. I talked to his girlfriend about a better diet and she assures me she will keep track of him. We are going to let him resume all his chronic medications including the phosphorus pills he had from before, although this time we are going to add the Flagyl at 500 mg t.i.d. for 6 more days, so he has a total of 10 days of Flagyl. I did warn Hugo that Clostridium is known to have spores and it could come back in 3 weeks, but only time will tell and we are going to have him back in our office in about 7 to 10 days and if things are going well, we had to revisit his need for surgery, although he remains hesitant to do that even though he has been encouraged by his family and friends. I explained all this to Hugo in detail actually each day. I think he understands it better now than he did 4 days ago. At this point, we are going to replace his magnesium and he will be going home later this morning. If he has any concerns or questions, he and his girlfriend can certainly call my office. He has expressed understanding and agrees the above plan. South Miranda MD ALB/MODL /[id number] cc: DO South Kelly MD Copies: YASHIRA SO DO PATIENT NAME: HUGO QUINN DISCHARGE SUMMARY DATE OF : 57 REPORT #: [id number] PHYSICIAN: SOUTH MIRANDA MD PCP: YASHIRA SO DO REPORT IS CONFIDENTIAL AND NOT TO BE RELEASED WITHOUT AUTHORIZATION [address], [place] [address] Draft SOUTH MIRANDA MD ~ PATIENT NAME: HUGO QUINN DISCHARGE SUMMARY DATE OF : 57 REPORT #: [id number] PHYSICIAN: SOUTH MIRANDA MD PCP: YASHIRA SO DO REPORT IS CONFIDENTIAL AND NOT TO BE RELEASED WITHOUT AUTHORIZATION
[~2018-05-05 12:14] MED LIST changes: +CITRACAL SOFT1 EACH PO; +PHOS-NAK PACKE1 EACH PO; +PRILOSEC OTC20 MG PO; +SENNA8.6 MG PO
[2018-05-06] MEDS ORDERED: BANOPHEN25 M1 PO (11:54)
[2018-05-06] MEDS ORDERED: BACLOFEN10 MG PO (11:54)
[2018-05-06] MEDS ORDERED: PHENADOZ25 MG PR (11:55)
[2018-05-06] MEDS ORDERED: TORSEMIDE20 MG PO (11:56)
[2018-05-06] MEDS ORDERED: VIRT-PHOS 250250 MG PO (11:57)
[2018-05-06] MEDS ORDERED: VITAMIN D50000 UNI1 PO (11:57)
[2018-05-12] MEDS ORDERED: XANAX XR2 MG PO (08:19)
--- NOTE | 2018-05-12 09:31 | NUR ---
PATIENT INCONTINENT OF WATERY STOOL. PATIENT UP TO COMMODE WITH 2 ASSIST TO VOID AND PASS WATERY STOOL 400ML. PATIENT CLEANED, FRESH SHEETS AND ATTENDS ON. GHAZALA-RECTAL SKIN BREAKDOWN NOTED, RIGHT SIDE WORSE THAN LEFT, SIGNIFICANT OTHER NOTES THAT THIS IS "MUCH BETTER" AND IS HEALING.
--- NOTE | 2018-05-12 09:41 | NUR ---
DR. MIRANDA IN TO SEE PATIENT AND DISCUSS PLAN TO DO LIMITED SCOPE TODAY, ADMIT TO MEDICAL FLOOR FOR ELECTROLYTE STABILIZATION AND RESCHEDULE SURGERY FOR LATER IN THE WEEK.
--- NOTE | 2018-05-12 10:26 | NUR ---
05/12/18 Nisa6 Larissa Sherman 1020-PATIENT ARRIVED TO PACU ON 6L MASK O2 SAT 100% RR EVEN PATIENT NONAROUSABLE. SR WITH BBB. PATIENT LAYING LEFT LATERAL. ABDOMEN SOFT.
--- NOTE | 2018-05-12 11:30 | NUR ---
PT TO FLOOR WITH RN ERICA. PT VERY DROWSY YET AROUSABLE. 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
--- NOTE | 2018-05-12 12:36 | NUR ---
PT UP TO BEDSIDE COMMODE FOR SECOND TIME. PASSING LARGE QTY OF LIQUID STOOL AND GAS. PT DENIES APPETITE AND TOOK MED WITH SMALL SIP OF WATER.
--- NOTE | 2018-05-12 12:38 | NUR ---
CALLED PHARMACY REGARDING WRITTEN ORDER FROM DR MIRANDA FOR IV POTASSIUM. MARCELLA AGREED IT WAS APPROPRIATELY PLACED. WILL HANG ONCE VERIFIED.
--- NOTE | 2018-05-12 15:04 | NUR ---
THIS HOME HEALTH PROVIDER ASSISTED PATIENT FROM THE BED TO THE BEDSIDE COMMODE. PATIENT IS NOW RESTING IN BED. VITALS AND I&Os DONE. CALL LIGHT WITHIN REACH. NO OTHER NEEDS AT THIS TIME.
--- NOTE | 2018-05-12 16:44 | NUR ---
ASSISTED THE PT TO THE BEDSIDE COMMODE. PT HAD MODERATE QTY LIQUID ODIFEROUS STOOL. PT SBA ASSIST. USED BARRIER WIPES AND APPLIED BARRIER CREAM TO RIGHT CHEEK WHERE IT IS EXCORIATED. PT AND SIG. OTHER STATE IT IS MUCH BETTER THAN A COUPLE MONTHS AGO.
--- NOTE | 2018-05-12 17:37 | NUR ---
PT UP TO BEDSIDE COMMODE MULTIPLE TIMES FOR ODIFEROUS LIQUID STOOLS. RIGHT BUTT CHEEK EXCORIATED, USED BARRIER WIPES AND BARRIER CREAM. DEPENDS IN PLACE. CALLS APPROPRIATLY. K+ 2.7, GIVEN K RIDERS. AND IV FLUID SWITCHED TO D5LR W\20K. REDNESS NOTED ON RIGHT LOWER LEG, UNCHANGED AND PT STATES IT IS NORMAL. +3 EDEMA BLE. PARKINSONS-1PA.
--- NOTE | 2018-05-12 17:38 | NUR ---
this au pair and rn assisted patient onto the bedside commode. vitals and i&os done. patient is now sitting up in bed eating dinner. call light within reach. no other needs at this time.
--- NOTE | 2018-05-12 19:44 | NUR ---
patient sitting up in bed eating dinner. call light within reach. no other needs at this time.
--- NOTE | 2018-05-12 19:56 | NUR ---
RECEIVED REPORT FROM DAY SHIFT RN. STAFFING BRANCH MANAGER IN THE ROOM. PATIENT ON BSC. NO NEEDS NOTED. CALL LIGHT IN REACH.
--- NOTE | 2018-05-12 20:25 | NUR ---
PATIENT ASSEMSENT COMPLETED. PATIENTS VITALS TAKEN AND RECORDED. PATIENT ASSISTED TO THE BSC. PATIENT IS ABLE TO PIVOT TRANSFER WITH MINIMAL ASSISTANCE. PATIENT HAD X1 SMALL BM. PATIENT IS NOW BACK IN BED RESTING. PATIENT HAS A RED BOTTOM WITH OPEN SORES. BARRIER CREAM APPLIED. PATIENT DENIES ANY FURTHER NEEDS. PATIENTS CALL LIGHT IS WITHIN REACH. PATIENT REMAINS ON CONTACT PRECAUTIONS.
--- NOTE | 2018-05-12 22:57 | NUR ---
PATIENT ASSISTED TO THE BSC A PIVOT TRANSFER. PATIENT HAD X1 SMALL BM. PATIENT IS NOW ABCK IN BED RESTING. BARRIER CREAM APPLIED TO BUTTOCKS AREA.
--- NOTE | 2018-05-13 01:13 | NUR ---
VITALS AND I&OS DONE AND CHARTED. BEDSIDE TABLE AND CALL LIGHT WITHIN REACH. HELPED PT GET INTO BED.
--- NOTE | 2018-05-13 01:55 | NUR ---
PATIENTS 0200 MEDICATIONS GIVEN PER ORDER. PATIENT IS SITTING IN THE EDGE OF THE BED TO STRETCH OUT. NO FURTHER NEEDS NOTED. CALL LIGHT IN REACH. PATIENT EDUCATED TO CALL WHEN HE IS READY TO GET BACK IN TO BED. PATIENT VERBALIZED UNDERSTANDING.
--- NOTE | 2018-05-13 04:11 | NUR ---
PATIENT IS RESTING IN BED WITH EYES CLOSED. BREATHING IS EVEN AND UNLABORED, RR 17
--- NOTE | 2018-05-13 04:54 | NUR ---
PATIENT RESTED WELL THROUGHOUT THE SHIFT. PATIENT IS ON A CLEAR LIQUID DIET AND TOLERATING IT WELL, NO COMPLAINTS OF NAUSEA. PATIENT IS A SBA, PIVOT TRANSFER TO THE [facility] [place]. PATIENT IS ON RA. PATIENT HAD MULTIPLE LOOS BMS. PATIENT DENIED ANY PAIN. PATIENT IS AAOX3 AND USES CALL LIGHT APPROPRIATELY
--- NOTE | 2018-05-13 05:32 | NUR ---
PATIENTS MORNING MEDICATION GIVEN PER ORDER. PATIENT ASSISTED TO THE BSC. PATIENT WAS ABLE TO PIVOT TRANSFER TO THE BSC. PATIENT HAD A VERY SMALL LOOSE BM. PATIENT IS NOW BACK IN BED RESTING. PATIENTS VITALS TAKEN AND RECORDED. PATIENT DENIES ANY FURTHER NEEDS. CALL LIGHT IS WITHIN REACH.
--- NOTE | 2018-05-13 06:31 | NUR ---
PATIENT CALLED FOR ASSISTANCE OF OFF THE BSC. PATIENT SELF TRANSFERRED TO THE BSC. PATIENT IS UNSTEADY ON HIS FEET AT THIS TIME. PATIENT HAD A VERY SMALL LOOSE BM. PATIENT IS NOW BACK IN BED RESTING. PATIENTS BED ALARM IS PLACED ON FOR PATIENT SAFETY.
--- NOTE | 2018-05-13 07:25 | NUR ---
MORNING ASSESSMENT AND MEDICATIONS DUE. THIS RN TO BEDSIDE. PT RESTING WITH EYES CLOSED. RR = 16 BPM. PT AWAKENS TO VOICE. ASSESSMENT DONE. KENNEDI MONDRAGON (SEE MAR). BED RAILS UP. CALL LIGTH WITHIN REACH. BED ALARM ON. PT STATES HE HASNO REQUESTS OR COMPLAINTS AT THIS TIME.
--- NOTE | 2018-05-13 08:10 | OR ---
[facility] [address], [place] [address] Signed DATE OF OPERATION: SURGEON: South Miranda MD PREOPERATIVE DIAGNOSES: 1. Lower abdominal pain number. 2. History of recent sigmoid volvulus. POSTOPERATIVE DIAGNOSIS: Clostridium difficile colitis. PROCEDURES: Limited colonoscopy with cold biopsies of the sigmoid colon and rectum. ESTIMATED BLOOD LOSS: None. INDICATIONS: Hugo is a 63-year-old gentleman. I had in the hospital a little over a week ago. It looked like he had sigmoid volvulus. We had decompressed him and his abdominal exam improved markedly. We were able to put him through a bowel prep and we spent several days correcting his potassium and phosphorus levels. He was pretty resident to undergo surgery. We have therefore discharge him to home with his long-standing girlfriend. He went home on phosphorus tablets and his regular medications. He talked to his family in the end decided he would have the surgery. When he came in for his preop his CBC was a little elevated and the potassium is borderline. When we repeated the potassium, it continued to fall, so we gave him some potassium tablets as an outpatient and continue the phosphorus tablets. His white blood cell count improved. He was also a just a little bit renal failure that improved when he came this morning. We denny stat labs to see where he would land and unfortunately his potassium is actually got lower at 2.7. I had to explain to Dat and his girlfriend Farida that is too low for general anesthesia and for colon resection. However, he had taken his Xanax before come to the hospital, so he was a little difficult to talk to, but his girlfriend Farida of course is with him. I explained to Farida, I thought since he was having recurrent lower abdominal pain, we would put the camera in with just a little bit of propofol on board and untwist the bowel and then would keep him in the hospital for a few days to optimize his preop electrolytes and so forth and plan on doing his surgery later this week. Dat and his girlfriend Farida had expressed understanding and wished to proceed as above. PROCEDURE NOTE: Dat was taken into endoscopy suite and placed in the left lateral decubitus position. Electronically Signed By: SOUTH MIRANDA MD 05/13/18 0810 PATIENT NAME: HUGO QUINN OPERATIVE REPORT DATE OF : 57 REPORT #: [id number] PHYSICIAN: SOUTH MIRANDA MD PCP: WILMAN SO DO REPORT IS CONFIDENTIAL AND NOT TO BE RELEASED WITHOUT AUTHORIZATION [facility] [address], [place] [address] Signed He was given a little bit of Versed on top of his Xanax per our nurse pooling operator. Dat has a very stiff flexed neck and no T and he has varied in the he represents an airway potential airway issue, which necessitated the anesthesia provider. After this, a digital rectal exam was performed, this was unremarkable. The adult colonoscope was introduced and we immediately encountered multiple white dots around the whole rectum along with some liquid stool. I advanced the scope up to the top of the rectum and once again there was liquid stool in the way I could see the classic twisting of the bowel, but I could see just a little and I carefully passed the scope and I could feel it come through and again I opened up into a dilated sigmoid colon full mostly air, some liquid stool, multiple white dots all through the colon. We went ahead and took biopsies out of the sigmoid colon. We then withdrew our scope and suctioned the air out as we came and then took a couple biopsies out of his rectum and then withdrew the scope completely. Dat tolerated the procedure quite well. RECOMMENDATIONS: Dat is going to be admitted to the hospital. We will start him on Flagyl for the C diff colitis and we will go ahead and send off stool studies and allow him liquid diet. In the meantime, we will give him on some IV fluids and we will correct his potassium as well. Hopefully, we can get him through his if his C diff colitis and eventually will get his surgery done once we have him optimized from a preoperative standpoint. South Miranda MD ALB/MODL /[id number] cc: MD Wilman Hough DO Copies: SOUTH MIRANDA MD, KENT DO ~ Electronically Signed By: SOUTH MIRANDA MD 05/13/18 0810 PATIENT NAME: HUGO QUINN OPERATIVE REPORT DATE OF : 57 REPORT #: [id number] PHYSICIAN: SOUTH MIRANDA MD PCP: WILMAN SO DO REPORT IS CONFIDENTIAL AND NOT TO BE RELEASED WITHOUT AUTHORIZATION
--- NOTE | 2018-05-13 08:51 | NUR ---
medications due. this rn to bedside. PT WATCHING TV. PT STATES "I JUST WANT TO GO HOME." PT REASSURED, AND UPDATED WITH PLAN OF CARE. PT AGREES TO WAIT AND SEE THE DOCTOR. PT STATES "LUIS MIGUEL BEEN HERE FOR TWO DAYS AND HAVEN'T SEE THE DOCTOR." PT ASSURED THAT THE DOCTOR IS REVIEWING HIS RECORD FREQUENTLY. MEDICATIONS GIVEN (SEE MAR). PT CONTINUES WATCHING TV. NO ADDITIONAL REQUESTS OR COMPLAINTS.
--- NOTE | 2018-05-13 09:15 | NUR ---
PT CALL LIGHT ON. PT REQUESTS BREAKFAST TRAY BE REMOVED. PT CONSUMED 0%. PT REQEUSTS HEAD OF BED BE LOWERED. HEAD OF BED LOWERED TO 30 DEGREES. BED RAILS UP. CALL LIGHT WITHIN REACH.
--- NOTE | 2018-05-13 09:17 | NUR ---
MED REC COMPLETE
--- NOTE | 2018-05-13 09:35 | NUR ---
pt was asked if he would like to shower and he said no, will recheck again later
--- NOTE | 2018-05-13 10:04 | NUR ---
MEDICATIONS DUE. IV PUMP ALAMRNING "INFUSION COMLETE." THIS RN TO BEDSIDE. PT STATES HE HAS NO REQUESTS OR COMPLAINTS OTHER THAN "I WANT TO GO HOME." PT UPDATED WITH PLAN OF CARE. PT VERBALIZES UNDERSTANDING REGARDING WHY HE IS HERE. MEDICATION GIVEN. PT ASSISTED UP TO COMODE. URINE AND BM MIX. NEW BAG OF FLUIDS HUNG. PT ASSISTED BACK TO BED. DEPENDS CHANGED. BED RAILS UP. CALL LIGHT WITHIN REACH. BED ALARM ON.
--- NOTE | 2018-05-13 10:52 | NUR ---
pt is resting in bed safely with call light in reach. pt did not need anything at the moment
--- NOTE | 2018-05-13 11:45 | NUR ---
FOCUSSED ASSESSMENT DUE. THIS RN TO BEDSIDE. PT ASSISTED UP TO COMODE. FOCUSSED ASSESSMENT DONE. PT ASSISTED TO ORDER LUNCH. NO REQUESTS OR COMPLAINTS AT THIS TIME. NEW DEPENDS IN PLACE. ALLEVYN APPLIED TO SORE ON RIGHT GLUTEAL AREA. PT BACK TO BED. BED RAILS UP. CALL LIGHT WITHIN REACH.
--- NOTE | 2018-05-13 13:23 | NUR ---
PT CALL LIGHT ON. PT REQUESTS ASSISTANCE FROM [facility] BACK TO BED. PT CLEANED, NEW DEPENDS IN PLACE. ALLEVYN REMAINS IN PLACE. PT REPORTS "LUNCH WAS REALLY GOOD, NOW WE WILL SEE HOW I FEEL." BED RAILS UP. CALL LIGHT WITHIN REACH.
--- NOTE | 2018-05-13 13:46 | NUR ---
medications due. this rn to bedside. PT WATCHING TV. NO REQUESTS OR COMPLAINTS. PT DENIES PAIN AND NAUSEA. MEDICATIONS GIVEN ORDERED. BED RAILS UP. CALL LIGHT WITHIN REACH.
--- NOTE | 2018-05-13 14:01 | NUR ---
pt is resting in bed with eyes closed, respirations even. pt woke up for vitals, stated he did not need anything and dozed back off
--- NOTE | 2018-05-13 14:30 | NUR ---
PT CALL LIGHT ON. PT REQUESTS ASSISTANCE UP TO COMODE. K-PHOS RESTARTED AFTER ABX INFUSION. PT ASSISTED UP TO COMODE. PT COMPLAINS OF BURNING AT IV SITE. SITE ASSESSED. INFLAMATION NOTED. PIV DC'D PER PROTOCOL. BRISK BLOOD RETURN NOTED. K-PHOS RESTARTED. PT BACK TO BED. BED RAILSUP. CALL LIGHT WITHIN REACH. NO REQUESTS OR COMPLAINTS AT THIS TIME.
--- NOTE | 2018-05-13 16:21 | NUR ---
AFTERNOON ASSESSMENT DONE. THIS RN TO BEDSIDE. PT WATCHING TV. PT REPOSITIONED IN BED. ASSESSMENT DONE. PT REPORTS "SHAKING A LOT." AND STATES "SOMETIMES I NEED AN EXTRA DOSE OF CARODOPA/LEVODOPA." THIS RN NOTES OCCATIONAL TREMORS, ESPICIALLY WHEN PT IS TRYING TO EXERT EFFORT. WARM PACK PROVIDED PER PT REQUEST. MD CONSULTED REGARDING PTS REQUEST FOR ADDITIONAL MEDICATION. BED RAILS UP. CALL LIGTH WITHIN REACH.
--- NOTE | 2018-05-13 16:34 | NUR ---
STATES THAT PT CAN HAVE AN EXTRA DOSE OF CAVADOPA/LEVADOPA. PHARMACY CONTACTED. PHARMACIST WORKING ON TIMING OF MEDICATIONS. WILL CALL MED/SURG BACK ONCE ISSUE IS SOLVED.
--- NOTE | 2018-05-13 16:37 | NUR ---
STATES THAT PT CAN HAVE AN EXTRA DOSE OF CAVADOPA/LEVADOPA. PHARMACY CONTACTED. PHARMACIST WORKING ON TIMING OF MEDICATIONS. WILL CALL MED/SURG BACK ONCE ISSUE IS SOLVED.
--- NOTE | 2018-05-13 16:39 | NUR ---
PHARMACIST CALLED AND STATES TO GIVE 1800 DOES OF CARBODOPA/LEVADOPA. GIVEN ORDRED. Q3-4 HOUR SCHEDULE FOR CARBODOPA AND LEVADOPA PASSED ON TO CHARGE NURSE AND DURING HANDOFF REPORT. PT RESTING IN BED. BED RAILS UP. CALL LIGHT WITHIN REACH.
--- NOTE | 2018-05-13 16:49 | NUR ---
carvadopa/levadopa BROUGHT TO PTS ROOM ORDERED. PT UP TO COMODE. PT STATES "I JUST HAD TO GET UP AND DIDN'T CALL YOU." FALL PREVENTION PROTOCOL REVIEWED WITH PT. PT VERBALIZES UNDERSTANDING. PT CLEANED, NEW DEPENDS IN PLACE. PT BACK TO BED. BED RAILS UP. CALL LIGHT WITHIN REACH. BED ALARM ON. MEDICATION GIVEN ORDERED.
--- NOTE | 2018-05-13 18:06 | NUR ---
PT HERE FOR D-DIFF AND COLITIS. IV AND PO ABX. FREQUENT BMS. BED SIDE COMODE. LOW ELECTROLYTE LEVELS. K-PHOSE GIVEN TODAY. HX OF LUCIUS DZ, CARBADOPA/LEVADOPA Q 3-4 HOURS. PT REPORTS INCREASED TREMORS TODAY. DIET INCREASED TO FULL LIQUIDS TODAY. MINIMAL APPITITE, TOLERATING WELL. NEW PIV TODAY. USING CALL LIGHT INCONSISTANTLY.
--- NOTE | 2018-05-13 18:11 | NUR ---
pt is resting in bed safely with call light in reach. pt is still working on his dinner and does not need anything at the moment
--- NOTE | 2018-05-13 20:00 | NUR ---
Pillows and bedding repositioned to his requests, fresh cup of ice given. Continues on Contact precautions. No other requests, no c/o pain
--- NOTE | 2018-05-13 21:00 | NUR ---
coop with assessment, involuntary hand tremors present. ivf intact. continues on contact isolation
--- NOTE | 2018-05-13 21:35 | NUR ---
HELPED PT GET TO THE BED FROM THE BSC. BEDSIDE TABLE AND CALL LIGHT WITHIN REACH. FRESH ICE GIVEN.
--- NOTE | 2018-05-13 21:39 | NUR ---
HELPED PT TO THE BSC . PT SAYS HE WILL CALL WHEN HE IS DONE . CALL LIGHT WITHIN REACH.
--- NOTE | 2018-05-13 21:57 | NUR ---
HELPED PT BACK TO BED FROM THE BSC. BEDSIDE TABLE AND CALL LIGHT WITHIN REACH.
--- NOTE | 2018-05-13 22:18 | NUR ---
Pt spilled ice chips on himself, gown and linen changed, coop.
--- NOTE | 2018-05-13 22:28 | NUR ---
HELPED PT TO THE BSC . PT SAYS HE WILL CALL WHEN READY.
--- NOTE | 2018-05-13 23:17 | NUR ---
PER PT REQUEST I WENT INTO HIS ROOM AND FIXED HIS BLANKETS, AND TURNED OUT HIS LIGHT. ASKED PT IF HE NEEDED ANYTHING ELSE AT THIS TIME. HE STATED NO. BEDSIDE TABLE AND CALL LIGHT WITHIN REACH.
--- NOTE | 2018-05-14 00:50 | NUR ---
PT C/O "BACK DISCOMFORT FROM LAYING IN BED", REPOSITIONED IN BED, NOT COFORTABLE, UP TO EDGE OF BED AT HIS REQUESTS. CONTINUES ON CONTACT PRECAUTIONS
--- NOTE | 2018-05-14 01:48 | NUR ---
SBA TO BSC. VOIDED 300. I LOOSE STOOL. BACK TO BED. CALL LIGHT WITHIN REACH. WARM RAG TO WASH FACE. REPORTS NO OTHER NEEDS AT THIS TIME.
--- NOTE | 2018-05-14 02:35 | NUR ---
bedding and pillows repositioned, fresh cup of ice given, no other requests, Continues on contact isolation
--- NOTE | 2018-05-14 05:59 | NUR ---
Pt continues on Contact Precautions due to + C-Diff. Up to bsc with one assist and pivot. Has had multiple soft/runny bm's. Voiding QS. IVF infusing w/o problems. No c/o adverse reaction to abx. Has un intentional tremors due to Parkinson dz, Left more than right. Edema of ankles and feet 2+. elevated. Tolerating full liquid, ice chips well. Pt on full liquid. Taking Sinemet tab Q3H
--- NOTE | 2018-05-14 06:40 | NUR ---
Up to bsc, Pivot and one assist. Continues to have semiliquid ezvy-mloqpa-inspv colored bms mixed with urine. Allevyn to r buttocks intact. Back to bed. Tolerates it well. no other requests
--- NOTE | 2018-05-14 07:50 | NUR ---
PATIENT RESTING IN BED, CALL LIGHT IN REACH. NO OTHER NEEDS AT THIS TIME.
--- NOTE | 2018-05-14 08:00 | NUR ---
RECEIVED REPORT AT 0700, FOUND PT IN BED AWAKE. PT HAD NO CONCERNS AT THAT TIME.
--- NOTE | 2018-05-14 08:22 | NUR ---
PATIENT STATES HE DOES NOT WANT TO SHOWER AT THIS TIME, BUT MAY WANT TO LATER THIS AFTERNOON.
--- NOTE | 2018-05-14 10:00 | NUR ---
V/S ARE WDL. PT IN ROOM. APPETITE IS STILL DECREASED. NO NEEDS OR CONCERNS AT THIS TIME.
--- NOTE | 2018-05-14 12:00 | NUR ---
PT WAS SITTING UP FOR LUNCH. PT PO INTAKE IS STILL SOMEWHAT POOR. PT AT THIS TIME DECLINED A WALK IN THE HALLWAY. PT NOW IS BACK IN BED RESTING. NO NEW CONCERNS AT THIS TIME.
--- NOTE | 2018-05-14 12:42 | NUR ---
PATIENT RESTING IN BED, CALL LIGHT IN REACH. NO OTHER NEEDS AT THIS TIME.
--- NOTE | 2018-05-14 13:57 | NUR ---
PATIENT RESTING IN BED, CALL LIGHT IN REACH. NO OTHER NEEDS AT THIS TIME.
--- NOTE | 2018-05-14 14:00 | NUR ---
ASSISTED PT TO AND FROM BATROOM A LITTLE WHILE AGO. OVERALL PT IS STEADY ON HIS FEET. PT HAS NO NEW CONCERNS AT THIS TIME. LOBES ARE CLEAR, ABD SOUNDS ARE HYPERACTIVE, BMX3 THIS SHIFT.
--- NOTE | 2018-05-14 15:43 | NUR ---
THIS OPTICAL GOODS WORKER ASSISTED PATIENT UP TO BEDSIDE COMMODE. THIS OPTICAL GOODS WORKER GAVE PATIENT BED BATH AND ASSISTED PATIENT TO CHANGE GOWN. LINENS CHANGED. PATIENT BACK IN BED, CALL LIGHT IN REACH. NO OTHER NEEDS AT THIS TIME.
--- NOTE | 2018-05-14 16:00 | NUR ---
PT IS IN BED WATCHING TV. PT AT THIS TIME HAS NO NEEDS.
--- NOTE | 2018-05-14 17:40 | NUR ---
PATIENT SITTING UP ON EDGE OF BED EATING DINNER, RN IN ROOM. NO OTHER NEEDS AT THIS TIME.
--- NOTE | 2018-05-14 18:01 | NUR ---
V/S ARE WDL, PT OVERALL HAD AN UNEVENTFUL DAY. ALL LOBES ARE CLEAR, ABD SOUNDS ARE HYPERACTIVE, ABD IS SOFT TO TOUCH. PT HAD SEVERAL BM'S THIS SHIFT. BILATERAL LOWER LEG EDEMA IS +1, PEDIS PULSES +2. OVERALL APPETITE IS STILL POOR. NO NEW CONCERNS NOTED THIS SHIFT SO FAR.
--- NOTE | 2018-05-14 20:00 | NUR ---
CHECKED IN ON PATIENT AFTER REPORT. PATIENT WATCHING TV AND NOT NEEDING ANYTHING AT THIS TIME. CALL LIGHT IN REACH.
--- NOTE | 2018-05-14 21:35 | NUR ---
PATIENT UP TO BEDSIDE COMMODE AND BACK TO BED WITH 1 PERSON ASSIST. PATIENT STANDS WELL WITH 1 PERSON STANDBY ASSIST. STILL HAVING SMALL LOOSE TO WATERY BROWN TO GREEN STOOLS.
--- NOTE | 2018-05-14 23:27 | NUR ---
HELPED PT GET TO THE BED FROM THE BSC. GOT HIM AN EXTRA BLANKET. BEDSIDE TABLE AND CALL LIGHT WITHIN REACH.
--- NOTE | 2018-05-14 23:35 | NUR ---
IN TO SEE PT, PT RESTING IN BED SUPIN WITH RESPIRATIONS EVEN AND UNLABORED. PT HAS INCREASING TREMORS TO BILATERAL UPPER EXTREMITIES SO WAS GIVEN PRN RX AT THIS TIME. CALL LIGHT IN REACH AND FRESH ICE WATER ALSO IN REACH. NO FURTHER CONCERNS OR REQUESTS VOICED.
--- NOTE | 2018-05-14 23:56 | NUR ---
answered call light, pt states "i feel like i could go to the bathroom". Pt stand by assisted to bedside commode without difficulty. call light in rteach.
--- NOTE | 2018-05-15 02:34 | NUR ---
PATIENT UP TO THE BEDSIDE COMMODE AND BACK INTO BED WITH 1 PERSON ASSIST.
--- NOTE | 2018-05-15 03:16 | NUR ---
Answered pt's call light. pt resting in bed in no apparent distress. IV pump beeping pt states this is ehy he called. Flagyl ivpb completed at this time . Primary fluids now running at 100ml/hr as ordered. call light in reach no furhter requests voiced.
--- NOTE | 2018-05-15 03:51 | NUR ---
PATIENT NOT SLEEPING MUCH TONIGHT. PATIENT SAYS HE USUALLY STAYS UP AT NIGHT. PATIENT CONTINUES TO WATCH TV AND HAS NO VERBALIZED NEEDS AT THIS TIME.
--- NOTE | 2018-05-15 06:39 | NUR ---
PATIENT HAS BEEN AWAKE MOST OF THE NIGHT AND CONTINUES TO HAVE BROWNISH/GREEN LIQUID TO SOFT STOOLS. BOWEL TONES HYPERACTIVE AND LUNGS ARE CLEAR. IV D5 1/2NS WITH 20KCL AT 100MLS AN HOUR IS STILL RUNNING. PATIENT TAKING PO FLUIDS WELL. PATIENT MEDICATED FOR HIS TREMORS EVERY 3-4 HOURS. PATIENT SAYS HE NORMALLY IS UP AT NIGHT AND WILL TRY TO GET SOME REST TODAY. PATIENT REMAINS IN CONTACT ISOLATION AND USES HIS CALL LIGHT APPROPRIATELY.
--- NOTE | 2018-05-15 07:38 | NUR ---
REPORT RECIEVED FROM BUSTER ZAMBRANO. PT ASLEEP. D5LR AT 100. RN'S STATE HE DID NOT EAT MUCH OF DINNER TRAY LAST NIGHT. CONTINUES TO HAVE LOW APPET.
--- NOTE | 2018-05-15 09:54 | NUR ---
PT UP TO BEDSIDE COMMODE FOR URINE WITH APPROX TEASPOON OF DIAHRREA. PT STATES HE IS NOT HAVING NEARLY MUCH TODAY.
--- NOTE | 2018-05-15 13:46 | NUR ---
PT ASSISTED BACK TO BED. STATES SHOWER WAS AMAZING AND FEELS MUCH BETTER. ATTATCHED TO IV. CALL LIGHT IN REACH.
--- NOTE | 2018-05-15 14:33 | NUR ---
PT IV LEAKING. REMOVED AND REPLACED WITH NEW ONE ON RIGHT ARM. PT TOLERATED WELL. STARTED IV FLAGYL.
--- NOTE | 2018-05-15 15:13 | NUR ---
AB STARTED, SECOND VERIFIED WITH BUSTER STALLWORTH AND PHARM. BRI. FAMILY IN ROOM, PT SLEEPING.
--- NOTE | 2018-05-15 15:34 | NUR ---
PT CALLED TO GO TO THE RESTROOM. VOIDED LARGE AMT RONNI URINE WITHOUT ANY STOOL. PT ADMINISTERED SINEMET PER SCHEDULE.
--- NOTE | 2018-05-15 17:53 | NUR ---
PT UP TO BEDSIDE COMMODE MULTIPLE TIMES TODAY. VERY LITTLE DIAHRREA. STATES HE IS FEELING MUCH BETTER AND HOPING TO GO HOME TOMORROW. SHOWERED. NEW IV. SINEMET Q3 MOST OF THE TIME. MUCH STRONGER AND ABLE TO GET UP WITH MINIMAL ASSISTANCE.
--- NOTE | 2018-05-15 19:04 | NUR ---
REPORT RECEIVED FROM DAYSKSFT RN. PT RESTING SUPINE IN BED, ALERT AND ORIENTED, CALL LIGHT IN REACH. PT APPEARS COMFORTABLE AND STATES HE IS "FEELING BETTER TODAY". NO NEEDS VOICED.
--- NOTE | 2018-05-15 20:33 | NUR ---
In to see patient, pt laying in bed respirations even and unlabored and call light in reach. pt assessment performed, pt denies needs at this time. pt states "I'm feeling better today".
--- NOTE | 2018-05-15 21:47 | NUR ---
Pt assisted up to bedside commode. pt transfers with only standby assist without difficulty. call light in reach.
--- NOTE | 2018-05-15 22:49 | NUR ---
CHARGE NURSE ROUNDING NOTE: CONTINUES ON CONTACT PRECAUTION, C DIFF+, REQUIRES ONE PERSON ASSIST/PIVOTING TO BSC. IVF INFUSING W/O PROBLEMS. EDEMATOUS LEGS, ELEVATED, FRESH ICE GIVEN. NO REQUESTS
--- NOTE | 2018-05-15 23:12 | NUR ---
answered call light, pt reports "my stomach is feeling unsettled". per pt request pr zofran administered at this time. call light in reach and pt denies having any further requests/concerns.
--- NOTE | 2018-05-15 23:58 | NUR ---
PATIENT ASSISTED TO THE RESTROOM A SBA, PIVOT TRANSFER TO THE [facility] [place]. PATIENT WAS ABLE TO VOID. PATIENT TOELRATED ACTIVITY WELL. PATIENT IS NOW BACK IN BED RESTING. PATIENTS IS NO LONGER NAUSEOUS. PATIENT DENIES ANY FURTHER NEEDS. PATIENTS 0000 MEDICATIONS GIVEN PER ORDER. CALL LIGHT IN REACH.
--- NOTE | 2018-05-16 01:20 | NUR ---
1PA TO THE BEDSIDE COMMODE. PATIENT IS BACK IN BED NOW. CALL LIGHT IN REACH.
--- NOTE | 2018-05-16 02:35 | NUR ---
ASSISTED PATIENT TO THE BEDSIDE COMMODE AND BACK TO BED. CALL LIGHT WITHIN REACH.
--- NOTE | 2018-05-16 04:25 | NUR ---
pt up to commode, attends changed and call light in reach.
--- NOTE | 2018-05-16 04:52 | NUR ---
pt reporting "im feeling a little more nausea comming on could i get some more of that medacine for nausea?" pt resting in bed denies emisis. zofran 8mg administered ivp. Call light in reach no furhter requests at this time.
--- NOTE | 2018-05-16 05:53 | NUR ---
pt has slept intermittently through the night and has called intermittently to get up to use commode. pt was up with minimal stand by assist. Pt did report nausea on two occasions which was releived with prn 8mg ivp zofran. pt has been a/o x4 and been receiving iv abx and d5 1/2ns with 20K+ at 75mls/hr. dressing CDI to sacrum and skin red but blancheable.
--- NOTE | 2018-05-16 06:12 | NUR ---
PATIENTS VITALS TAKEN AND RECORDED. PATIIENT ASSISTED TO THE RESTROOM. PATIENT IS A SBA TO PIVOT TRANSFER TO THE [facility] [place]. PATIENT WAS ABLE TO VOID. PATIENT IS NOW BACK IN BED RESTING. PATIENT TOELRATED ACRTIVITY WELL. PATIENTS MORNING MEDICATIONS GIVEN PER ORDER. PATIENT DENIES ANY NEEDS. CALL LIGHT IN REACH.
--- NOTE | 2018-05-16 08:18 | NUR ---
nancy wanted to get up in chair, kourtney cole and this home health cna assisted him to his chair and did his bs he is currently eating breakfast.
--- NOTE | 2018-05-16 08:30 | NUR ---
PT AWAKE IN BED, ATE A FEW BITES OF BREAKFAST BUT STATES "I'M JUST SO NERVOUS ABOUT GOING HOME THAT I DON'T FEEL LIKE EATING." DENIES PAIN OR OTHER CONCERNS. ALERT AND ORIENTED. MODERATE TERMORS NOTED. NON PITTING EDEMA TO RIGHT ANKLE. IV INFUSING IN RIGHT WRIST, DRESSING CDI. CALL LIGHT WITHIN REACH.
--- NOTE | 2018-05-16 08:31 | NUR ---
patient eating breakfast
[2018-05-16] MEDS ORDERED: FLAGYL500 MG PO (09:37)
--- NOTE | 2018-05-16 10:10 | NUR ---
PT LYING IN BED WATCHING TV, WAITING FOR IV INFUSION TO COMPLETE. DENIES NEEDS OR CONCERNS AT THIS TIME. CALL LIGHT WITHIN REACH.
--- NOTE | 2018-05-16 11:00 | NUR ---
PT MINIMAL ASSIST TO GET DRESSED. IV DC'D, CATH TIP INTACT, NO REDNESS OR INFLAMMATION OF INSERTION SITE. ALL PERSONAL BELONGINGS GATHERED AND WITH PT. PT WAITING FOR GIRLFRIEND.
== END 2018-05-16 11:17 | disposition home or self-care (01) | DRG 373 ==
LOC: DSVR 05-12 07:55 → DS 05-12 09:15 → MS 05-12 11:15 → EDSTATUS 05-12 11:30 → MS 05-12 11:30
PROVIDERS: ADMIT Colon & Rectal Surgery
PROC: 0DBN8ZX Excision of Sigmoid Colon, Via Natural or Artificial Opening Endoscopic, Diagnostic (ICD-10-PCS; 2018-05-12)
PROC: 0DBP8ZX Excision of Rectum, Via Natural or Artificial Opening Endoscopic, Diagnostic (ICD-10-PCS; principal; 2018-05-12 09:15)
DX: A04.72 Enterocolitis due to Clostridium difficile, not specified as recurrent (principal); E87.6 Hypokalemia; E83.39 Other disorders of phosphorus metabolism; E83.42 Hypomagnesemia; G20 Parkinson's disease; K59.00 Constipation, unspecified; G89.29 Other chronic pain; F32.9 Major depressive disorder, single episode, unspecified; Z79.891 Long term (current) use of opiate analgesic; Z79.899 Other long term (current) drug therapy
CPT/HCPCS: 36415; 80048; 80053; 83735; 84100; 84134; 85025; 87045; 87046; 87077; 87205; 87493; 88305; J0690; J0696; J1650; J2250; J2405; J2704; J3010; J3475; J3480; J7060; J7120; Q0163

== ENCOUNTER 2018-09-30 10:00 | Emergency (ER) | payer OTHER, MEDICARE ==
[~2018-09-30] VITALS: Ht 182.9 cm; Wt 108.0 kg
--- OUTSIDE RECORDS SUMMARY | ~2018-09-30 | XMS | Clinical Summary ---
Demographics + + + | Address | [address] | | | [place] [address] | + + + | Home Phone | | + + + | Preferred Language | Unknown | + + + | Marital Status | Single | + + + | Sikh Affiliation | Unknown | + + + | Race | Unknown | + + + | Ethnic Group | Unknown | + + + Author + + + | Author | [facility] | | | and [place] | + + + | Organization | [facility] | | | and [place] | + + + | Address | Unknown | + + + | Phone | Unavailable | + + + Support + + +---------+ + | Name | Relationship | Address | Phone | + + +---------+ + | JAMIE QUINN | ECON | Unknown | | + + +---------+ + Care Team Providers + +------+ + | Care Benefit Specialist Name | Role | Phone | + +------+ + PP | Unavailable | + +------+ + Allergies Not on File Current Medications Not on file Active Problems Not on file Social History + +-------+ +--------+------+ | Tobacco Use | Types | Packs/Day | Years | Date | | | | | Used | | + +-------+ +--------+------+ | Never Assessed | | | | | + +-------+ +--------+------+ + + + | Sex Assigned at | Date Recorded | | | | + + + | Not on file | | + + + Plan of Treatment + + + + + | Health Maintenance | Due Date | Last Done | Comments | + + + + + | Vaccine: | | | | | Dtap/Tdap/Td (1 - | 5 | | | | Tdap) | | | | + + + + + | Vaccine: Zoster (1 | | | | | of 2) | 6 | | | + + + + + | Vaccine: Influenza | | | | | (#1) | 8 | | | + + + + + Results Not on filefrom Last 3 Months"
--- OUTSIDE RECORDS SUMMARY | ~2018-09-30 | XMS | Clinical Summary ---
Demographics + + + | Address | [address] | | | [place] [address] | + + + | Home Phone | | + + + | Preferred Language | Unknown | + + + | Marital Status | Single | + + + | Faith Affiliation | Unknown | + + + | Race | Unknown | + + + | Ethnic Group | Unknown | + + + Author + + + | Author | [facility] | | | and [place] | + + + | Organization | [facility] | | | and [...] Team Providers + +------+ + | Care Transistor Tester Name | Role | Phone | + [...]
[~2018-09-30 10:00] MED LIST changes: +BANOPHEN25 M1 PO; +FLAGYL500 MG PO; +NORCO 5-325 TA1 EACH PO; +PHENADOZ25 MG PR; +TORSEMIDE20 MG PO; +VIRT-PHOS 250250 MG PO; +VITAMIN D50000 UNI1 PO; +XANAX XR2 MG PO
--- OUTSIDE RECORDS SUMMARY | 2018-09-30 10:06 | XMS ---
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 Josue has no Care Guidelines for this patient. Robert VISIT COUNT (12 MO.) [address] [facility] TOTAL 6 NOTE: Visits indicate total known visits. ED/C VISIT TRACKING (12 MO.) 09/30/2018 10:01 [facility] [place] TYPE: Emergency COMPLAINT: - REACTION TO MEDICATION 09/24/2018 15:27 [facility] [place] TYPE: Emergency COMPLAINT: - GLF DIAGNOSES: - Unspecified fracture of second metacarpal bone, left hand, initial encounter for closed fracture - Unspecified injury of left wrist, hand and finger(s), initial encounter - Other roasterman (current) drug therapy - Encounter for immunization - Fall on same level from slipping, tripping and stumbling without subsequent striking against object, initial encounter - Personal history of nicotine dependence - Contusion of right front wall of thorax, initial encounter - Parkinson's disease - Unspecified fracture of the lower end of left radius, initial encounter for closed fracture 04/16/2018 21:41 [facility] [place] TYPE: Emergency COMPLAINT: - BOWEL OBSTRUCTION DIAGNOSES: - Diaphragmatic hernia without obstruction or gangrene - Constipation, unspecified - Other disorders of phosphorus metabolism - Hypokalemia - Personal history of other diseases of the digestive system - Major depressive disorder, single episode, unspecified - Gastric ulcer, unspecified as acute or chronic, without hemorrhage or perforation - Volvulus - Other chronic pain - Personal history of nicotine dependence - 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 - Other roasterman (current) drug therapy - Generalized abdominal pain - Parkinson's disease - Anemia, unspecified - Other specified congenital malformations of intestine - Gastroduodenitis, unspecified, without bleeding 02/09/2018 04:12 [facility] Normanrenate RaiRajeev Núñez [place] TYPE: Emergency COMPLAINT: - ABD PAIN,N/V DIAGNOSES: - Nausea with vomiting, unspecified - Personal history of nicotine dependence - Syncope and collapse - Major depressive disorder, single episode, unspecified - Other constipation - Other roasterman (current) drug therapy 02/05/2018 17:05 [facility] Normanrenate aRiRajeev Núñez [place] TYPE: Emergency COMPLAINT: - VOMITING/NAUSEA DIAGNOSES: - Major depressive disorder, single episode, unspecified - Parkinson's disease - Unspecified abdominal pain - Personal history of nicotine dependence - Other roasterman (current) drug therapy - Inflammatory disease of prostate, unspecified - Dehydration 12/30/2017 05:46 [facility] [place] HRajeev Núñez [place] TYPE: Emergency COMPLAINT: - NAUSEA,VOMITING,DIARRHEA DIAGNOSES: - Other [place] [facility] (current[facility] drug therapy - Major depressive disorder, single episode, unspecified - Nausea with vomiting, unspecified - Other specified diseases of anus and rectum - Urinary tract infection, site not specified - Personal history of nicotine dependence INPATIENT VISIT TRACKING (12 MO.) 05/12/2018 07:55 [facility] [place] TYPE: Medical Surgical COMPLAINT: - LOW ANTERIOR RESECTION DIAGNOSES: - Hypomagnesemia - Other disorders of phosphorus metabolism - Parkinson's disease - Volvulus - custodial (current) use of opiate analgesic - Constipation, unspecified - Other [place] [facility] (current) drug therapy - Enterocolitis due to Clostridium difficile, not specified as recurrent - Other chronic pain - Lower abdominal pain, unspecified - Hypokalemia - Major depressive disorder, single episode, unspecified 04/16/2018 21:42 [facility] [place] TYPE: Medical Surgical COMPLAINT: - BOWEL OBSTRUCTION DIAGNOSES: - Parkinson's disease - Personal history of other diseases of the digestive system - Constipation, unspecified - Personal history of nicotine dependence - Ulcer of anus and rectum - Other chronic pain - Gastric ulcer, unspecified as acute or chronic, without hemorrhage or perforation - Volvulus - Generalized abdominal pain - Other disorders of phosphorus metabolism - Diaphragmatic hernia without obstruction or gangrene - Other [place] [facility] (current) drug therapy - Other specified congenital malformations of intestine - Anemia, unspecified - Major depressive disorder, single episode, unspecified - Hypokalemia - custodial (current) use of opiate analgesic - Gastroduodenitis, unspecified, without bleeding [email or web address]
--- NOTE | 2018-10-01 08:23 | EKG ---
[facility] [address] [place] [address] Signed Poor data quality, interpretation may be adversely affected Wide QRS rhythm with occasional premature ventricular complexes Right bundle branch block T wave abnormality, consider inferolateral ischemia Abnormal ECG When compared with ECG of 06-MAY-2018 11:39, Wide QRS rhythm has replaced Sinus rhythm Confirmed by DENNIS RIOS MD ([id number]) on 10/01/2018 8:23:30 AM Electronically Signed By: DENNIS RIOS MD 10/01/18 0823 PATIENT NAME: LUCIO QUINN Electrocardiogram DATE OF : 57 PHYSICIAN: DENNIS RIOS MD REPORT #: [id number] REPORT IS CONFIDENTIAL AND NOT TO BE RELEASED WITHOUT AUTHORIZATION
--- NOTE | 2018-10-01 08:24 | EKG ---
[facility] [address] [place] [address] Signed Normal sinus rhythm Right bundle branch block Cannot rule out Inferior infarct , age undetermined Abnormal ECG When compared with ECG of 30-SEP-2018 10:09, (Unconfirmed) Sinus rhythm has replaced Wide QRS rhythm Confirmed by DENNIS RIOS MD ([id number]) on 10/01/2018 8:24:01 AM Electronically Signed By: DENNIS RIOS MD 10/01/18 0824 PATIENT NAME: LUCIO QUINN Electrocardiogram DATE OF : 57 PHYSICIAN: DENNIS RIOS MD REPORT #: [id number] REPORT IS CONFIDENTIAL AND NOT TO BE RELEASED WITHOUT AUTHORIZATION
== END 2018-09-30 14:02 | disposition home or self-care (01) ==
LOC: ED 10:00
DX: T42.8X5A Adverse effect of antiparkinsonism drugs and other central muscle-tone depressants, initial encounter (principal); F90.9 Attention-deficit hyperactivity disorder, unspecified type; G20 Parkinson's disease; F32.9 Major depressive disorder, single episode, unspecified; Z87.891 Personal history of nicotine dependence; Z88.8 Allergy status to other drugs, medicaments and biological substances; Z79.899 Other long term (current) drug therapy
CPT/HCPCS: 80053; 82550; 84484; 85025; 93005; 93010; 96361; 96374; 96375; 96376; 99285; J1200; J2060; J7030

== ENCOUNTER 2019-02-26 13:56 | Emergency (ER) | payer MEDICARE, OTHER ==
[~2019-02-26] VITALS: Ht 182.9 cm; Wt 108.0 kg
--- OUTSIDE RECORDS SUMMARY | ~2019-02-26 | XMS | Clinical Summary ---
Demographics + + + | Address | [address] | | | [place] [address] | + + + | Home Phone | | + + + | Preferred Language | Unknown | + + + | Marital Status | Single | + + + | Adventist Affiliation | Unknown | + + + | Race | Unknown | + + + | Ethnic Group | Unknown | + + + Author + + + | Author | [facility] | | | and [place] | + + + | Organization | [facility] | | [...] Team Providers + +------+ + | Care Client Service Administrator Name | Role | Phone | + [...] Vaccine: Influenza | | | | | (Season Ended) | 9 | | | + + + + + Results Not on filefrom Last 3 Months"
--- OUTSIDE RECORDS SUMMARY | ~2019-02-26 | XMS | Clinical Summary ---
Demographics + + + | Address | [address] | | | [place] [address] | + + + | Home Phone | | + + + | Preferred Language | Unknown | + + + | Marital Status | Single | + + + | Muslim Affiliation | Unknown | + + + | Race | Unknown | + + + | Ethnic Group | Unknown | + + + Author + + + | Author | [facility] | | | and [place] | + + + | Organization | [facility] | | | [...] Team Providers + +------+ + | Care Wire Galvanizer Name | Role | Phone | + [...]
[~2019-02-26 13:56] MED LIST changes: +HYDROCODON-ACE1 EA11 PO; +KEFLEX500 MG PO; +NORCO 7.5-3251 EACH PO
--- OUTSIDE RECORDS SUMMARY | 2019-02-26 14:00 | XMS ---
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 Care History Medical/Surgical 10/01/2018 [facility] - W CONTACTED PATIENT- SPOKE WITH PATIENT SIGNIFICANT OTHER ANDREA. - PATIENT HAD AN APT WITH DR SO ON 09/29/18. - PATIENT HAS AN APT WITH DR THOMAS 10/01/18 @ 11:15 AND IS SCHEDULED FOR SURGERY WITH DR THOMAS ON Thursday10/04/18. E.D. VISIT COUNT (12 MO.) 5 [facility] TOTAL 5 NOTE: Visits indicate total known visits. ED/UCC VISIT TRACKING (12 MO.) 02/26/2019 13:57 [facility] [place] TYPE: Emergency COMPLAINT: - BUMPS ON EAR AND IN MOUTH 11/08/2018 13:35 [facility] [place] TYPE: Emergency COMPLAINT: - POST OP PROBLEM DIAGNOSES: - Major depressive disorder, single episode, unspecified - Other intermediate designer (current) drug therapy - Fever, unspecified - Cellulitis of left upper limb - Allergy status to other drugs, medicaments and biological substances status - Personal history of nicotine dependence 09/30/2018 10:01 [facility] [place] TYPE: Emergency COMPLAINT: - REACTION TO MEDICATION DIAGNOSES: - Adverse effect of antiparkinsonism drugs and other central muscle-tone depressants, initial encounter - Major depressive disorder, single episode, unspecified - Allergy status to other drugs, medicaments and biological substances status - Attention-deficit hyperactivity disorder, unspecified type - Parkinson's disease - Other intermediate (current) drug therapy - Personal history of nicotine dependence - Adverse effect of antiparkinsonism drugs and other central muscle-tone depressants, initial encounter 09/24/2018 15:27 [facility] [place] TYPE: Emergency COMPLAINT: - GLF DIAGNOSES: - Unspecified fracture of second metacarpal bone, left hand, initial encounter for closed fracture - Unspecified injury of left wrist, hand and finger(s), initial encounter - Other intermediate designer (current) drug therapy - Encounter for immunization [...] - Personal history of nicotine dependence - snf (current) use of opiate analgesic - Other intermediate designer (current) drug therapy - Generalized abdominal pain - Parkinson's disease - Anemia, unspecified - Other specified congenital malformations of intestine - Gastroduodenitis, unspecified, without bleeding INPATIENT VISIT TRACKING (12 MO.) 05/12/2018 07:55 [facility] [place] TYPE: Medical Surgical COMPLAINT: - LOW ANTERIOR RESECTION DIAGNOSES: - Hypomagnesemia - Other disorders of phosphorus metabolism - Parkinson's disease - Volvulus - terminologist (current) use of opiate analgesic - Constipation, unspecified - Other intermediate designer (current) drug therapy - Enterocolitis due to [...] hernia without obstruction or gangrene - Other intermediate designer (current) drug therapy - Other specified congenital malformations of intestine - Anemia, unspecified - Major depressive disorder, single episode, unspecified - Hypokalemia - terminologist (current) use of opiate analgesic - Gastroduodenitis, unspecified, without bleeding [email or web address]
[2019-02-26] MEDS ORDERED: ATIVAN0.5 MG PO (18:44)
== END 2019-02-26 19:10 | disposition home or self-care (01) ==
LOC: ED 13:56
DX: R22.1 Localized swelling, mass and lump, neck (principal); F32.9 Major depressive disorder, single episode, unspecified; G20 Parkinson's disease; Z87.891 Personal history of nicotine dependence; Z88.6 Allergy status to analgesic agent; Z88.8 Allergy status to other drugs, medicaments and biological substances; Z91.018 Allergy to other foods; Z79.899 Other long term (current) drug therapy
CPT/HCPCS: 70491; 71046; 80053; 85025; 99284-25; Q9967